=== PATIENT | female | born 1935 | race Caucasian/White ===

== ENCOUNTER 2017-07-20 16:47 | Observation (INO) | payer MEDICARE, OTHER ==
[2017-07-20] MEDS ORDERED: Sodium Chloride 0.9% 10 ML Syringe FLUSH PRN ×2 (16:49→19:41)
[2017-07-20] MEDS ORDERED: Nitroglycerin 0.4 MG Tab.SL SL ONE ×2 (16:51→17:18)
[2017-07-20] MEDS ORDERED: Aspirin 81 MG Tab.Chew PO ONE (16:51)
--- NOTE | 2017-07-20 18:02 | EDM.PDOC ---
ED HPI GENERAL MEDICAL PROBLEM - General Chief Complaint: Chest Pain Stated Complaint: CHEST PAIN, SOB Time Seen by Provider: 07/20/17 16:50 Source of Information: Reports: Patient, Family History Limitations: Reports: No Limitations - History of Present Illness INITIAL COMMENTS - FREE TEXT/NARRATIVE: Leatha presents today with complaints of chest pressure since waking. She reports the pain as intermittent and heavy. She denies fever, chills, nausea, vomiting, radiation of pain to other places of her body. She has not taken aspirin or medication to help her symptoms. - Related Data Allergies Allergy/AdvReac Type Severity Reaction Status Date / Time levofloxacin Allergy Hives Verified 07/20/17 16:51 Home Meds: Home Meds Acetaminophen [Tylenol] 650 mg PO Q4HR PRN 11/11/12 [History] Albuterol Sulfate [Proair Hfa] 2 puff INH Q4H PRN 11/11/12 [History] Aspirin [Halfprin] 81 mg PO BEDTIME 11/11/12 [History] Calcium Carbonate [Calcium] 600 mg PO DAILY 11/11/12 [History] Fluticasone Propionate [Flonase] 2 spray SANYA BID 07/13/14 [History] Clopidogrel Bisulfate [Clopidogrel] 75 mg PO DAILY 07/20/17 [History] Fexofenadine/Pseudoephedrine [Jeimy-D 24 Hour Tablet] 1 tab PO DAILY 07/20/17 [History] Isosorbide Mononitrate [Isosorbide Mononitrate ER] 30 mg PO DAILY 07/20/17 [ History] RX: Gabapentin [Neurontin] 400 mg PO DAILY 07/20/17 [History] RX: Metoprolol Succinate [Toprol XL 50mg] 50 mg PO DAILY 07/20/17 [History] RX: atorvaSTATin [Lipitor] 40 mg PO BEDTIME 07/20/17 [History] Past Medical History HEENT History: Reports: Impaired Vision Cardiovascular History: Reports: Stents Respiratory History: Reports: COPD, SOB, TB 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 - Infectious Disease History Infectious Disease History: Reports: TB - Past Surgical History Other HEENT Surgeries/Procedures: 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 Denies: Wheezing, Sputum, Hemoptysis Cardiovascular: Reports: Chest Pain. 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 ED EXAM, GENERAL - Physical Exam Exam: See Below Free Text/Narrative:: Leatah is an 81 year old female presenting with complaints of chest pressure since this morning. Recent history of TB Negative sputum 05/05/17, 05/06/17, 05/07/17, She developed pancreatitis while taking isoniazid, rifampin, ethambtol and pyridoxine. Cardiac stents place 04/28/17. Per record review: genotype of TB contracted - most likely from contaminated bronchoscopy had same genotype of patient who had procedure prior to Leatha in March,. AFB smear negative 05/06/17 AFB culture showed no mycobacteria isolated 06/23/17. Exam Limited By: No Limitations General Appearance: Alert, WD/WN, Moderate Distress Eye Exam: Bilateral Eye: EOMI, Normal Inspection, PERRL Ears: Normal External Exam, Normal Canal, Hearing Grossly Normal, Normal TMs Ear Exam: Bilateral Ear: TM normal Throat/Mouth: Normal Inspection, Normal Lips, Normal Gums, Normal Oropharynx, Normal Voice, No Airway Compromise Head: Atraumatic, Normocephalic Neck: Normal Inspection, Supple, Non-Tender, Full Range of Motion. No: Lymphadenopathy (R), Lymphadenopathy (L) Respiratory/Chest: No Respiratory Distress, No Accessory Muscle Use, Chest Non- Tender, Other (Decreased breath sounds bilaterally. ) Cardiovascular: Normal Peripheral Pulses, Regular Rate, Rhythm, No Edema, No Murmur, No Rub Peripheral Pulses: 2+: Radial (L), Radial (R), Dorsalis Pedis (L), Dorsalis Pedis (R) GI/Abdominal: Normal Bowel Sounds, Soft, Non-Tender, No Organomegaly, No Distention, No Mass Back Exam: Normal Inspection, Full Range of Motion. No: CVA Tenderness (R), CVA Tenderness (L) Extremities: Normal Inspection, Normal Range of Motion, Non-Tender, No Pedal Edema, Normal Capillary Refill Neurological: Alert, Oriented, CN II-XII Intact, Normal Cognition, Normal Gait, No Motor/Sensory Deficits Psychiatric: Normal Affect, Normal Mood Skin Exam: Warm, Dry, Intact, Normal Color, No Rash Lymphatic: No Adenopathy EKG INTERPRETATION EKG Date: 07/20/17 Time: 16:51 Rhythm: NSR Rate (Beats/Min): 81 [place]: LAD-Left Hazen Deviation P-Wave: Present QRS: Normal ST-T: Normal QT: Normal Course - Vital Signs Last Recorded V/S: Last Vital Signs Temp 36.1 C 07/20/17 19:47 Pulse 73 07/20/17 19:47 Resp 8 L 07/20/17 19:47 BP 142/62 H 07/20/17 19:47 Pulse Ox 96 07/20/17 19:47 - Orders/Labs/Meds Orders: Active Orders 24 hr Category Date Time Status Chest 1V Frontal [CR] Stat Exams 07/20/17 16:49 Stop Req EKG 12 Lead [EK] Routine Ther 07/20/17 16:49 Stop Req Medication Orders Acetaminophen (Tylenol) 650 mg PO Q4H PRN PRN Reason: Pain (Mild 1-3)/fever Albuterol (Ventolin Hfa) 0 gm INH Q4H PRN PRN Reason: Dyspnea Albuterol (Proventil Neb Soln) 2.5 mg NEB Q4H PRN PRN Reason: Shortness Of Breath/wheezing Aspirin (Halfprin) 81 mg PO BEDTIME [facility] Aspirin (Aspirin) 81 mg PO DAILY [facility] Atorvastatin Calcium (Lipitor) 40 mg PO BEDTIME [facility] Clopidogrel Bisulfate (Plavix) 75 mg PO DAILY [facility] Enoxaparin Sodium (Lovenox) 40 mg SUBCUT DAILY [facility] Fluticasone Propionate (Flonase) 0 gm SANYA BID [facility] Gabapentin (Neurontin) 400 mg PO DAILY ECTOR Isosorbide Mononitrate (Imdur) 30 mg PO DAILY [facility] Magnesium Hydroxide (Milk Of Magnesia) 30 ml PO Q12H PRN PRN Reason: Constipation Morphine Sulfate (Morphine) 2 mg IVPUSH Q2H PRN PRN Reason: Pain (severe 7-10) Nitroglycerin (Nitrostat) 0.4 mg SL Q5M PRN PRN Reason: Chest Pain Stop: 07/21/17 18:19 Non-Formulary Medication (Fexofenadine/Pseudoephedrine [Jeimy-D 24 Hour Tablet ]) 1 tab PO DAILY [facility] Ondansetron HCl (Zofran) 4 mg IV Q4H PRN PRN Reason: Nausea/Vomiting Oxycodone HCl (Oxycodone) 5 mg PO Q4H PRN PRN Reason: Pain (moderate 4-6) Polyethylene Glycol (Miralax) 17 gm PO DAILY PRN PRN Reason: Constipation Senna/Docusate Sodium (Senna Plus) 1 tab PO BID PRN PRN Reason: Constipation Sodium Chloride (Saline Flush) 10 ml FLUSH ASDIRECTED PRN PRN Reason: Keep Vein Open Labs: Laboratory Tests 07/20/17 07/20/17 Range/Units 17:08 17:08 WBC 6.4 (4.5-11.0) K/uL RBC 4.32 (3.30-5.50) M/uL Hgb 12.8 (12.0-15.0) g/dL Hct 39.5 (36.0-48.0) % MCV 91 (80-98) fL MCH 30 (27-31) pg MCHC 32 (32-36) % Plt Count 223 (150-400) K/uL Neut % (Auto) 49 (36-66) % Lymph % (Auto) 45 H (24-44) % [place] % (Auto) 5 (2-6) % Eos % (Auto) 1 L (2-4) % Baso % (Auto) 0 (0-1) % Sodium 142 (140-148) mmol/L Potassium 3.3 L (3.6-5.2) mmol/L Chloride 105 (100-108) mmol/L Carbon Dioxide 25 (21-32) mmol/L Anion Gap 15.3 H (5.0-14.0) mmol/L BUN 16 (7-18) mg/dL Creatinine 1.1 H (0.6-1.0) mg/dL Est Cr Clr Drug Dosing 38.19 mL/min Estimated GFR (MDRD) 48 L (>60) Glucose 131 H (74-106) mg/dL Calcium 8.8 (8.5-10.1) mg/dL Total Bilirubin 0.5 (0.2-1.0) mg/dL AST 18 (15-37) U/L ALT 26 (12-78) U/L Alkaline Phosphatase 91 (46-116) U/L Troponin I < 0.017 (0.000-0.056) ng/mL Total Protein 7.0 (6.4-8.2) g/dL Albumin 3.2 L (3.4-5.0) g/dL Globulin 3.8 H (2.3-3.5) g/dL Albumin/Globulin Ratio 0.8 L (1.2-2.2) Patient lab work reviewed with her and her , Dr. Nicolas notified. Patient will be admitted observation. Patient and her in agreement. Meds: Medications Generic Name Dose Route Start Last Admin Trade Name Freq PRN Reason Stop Dose Admin Acetaminophen 650 mg 07/20/17 19:41 Tylenol PO Q4H PRN Pain (Mild 1-3)/fever Albuterol 0 gm 07/20/17 19:41 Ventolin Hfa INH Q4H PRN Dyspnea Albuterol 2.5 mg 07/20/17 19:41 Proventil Neb Soln NEB Q4H PRN Shortness Of Breath/wheezing Aspirin 81 mg 07/20/17 21:00 Halfprin PO BEDTIME ECTOR Aspirin 81 mg 07/21/17 09:00 Aspirin PO DAILY [facility] Atorvastatin Calcium 40 mg 07/20/17 21:00 Lipitor PO BEDTIME ECTOR Clopidogrel Bisulfate 75 mg 07/21/17 09:00 Plavix PO DAILY [facility] Enoxaparin Sodium 40 mg 07/20/17 19:41 Lovenox SUBCUT DAILY [facility] Fluticasone Propionate 0 gm 07/20/17 21:00 Flonase SANYA BID [facility] Gabapentin 400 mg 07/21/17 09:00 Neurontin PO DAILY [facility] Isosorbide Mononitrate 30 mg 07/21/17 09:00 Imdur PO DAILY [facility] Magnesium Hydroxide 30 ml 07/20/17 19:41 Milk Of Magnesia PO Q12H PRN Constipation Morphine Sulfate 2 mg 07/20/17 19:41 Morphine IVPUSH Q2H PRN Pain (severe 7-10) Nitroglycerin 0.4 mg 07/20/17 19:41 Nitrostat SL 07/21/17 18:19 Q5M PRN Chest Pain Non-Formulary Medication 1 tab 07/21/17 09:00 Fexofenadine/Pseudoephedrine [Jeimy-D 24 Hour Tablet] PO DAILY [facility] Ondansetron HCl 4 mg 07/20/17 19:41 Zofran IV Q4H PRN Nausea/Vomiting Oxycodone HCl 5 mg 07/20/17 19:41 Oxycodone PO Q4H PRN Pain (moderate 4-6) Polyethylene Glycol 17 gm 07/20/17 19:41 Miralax PO DAILY PRN Constipation Senna/Docusate Sodium 1 tab 07/20/17 19:41 Senna Plus PO BID PRN Constipation Sodium Chloride 10 ml 07/20/17 19:41 Saline Flush FLUSH ASDIRECTED PRN Keep Vein Open Discontinued Medications Generic Name Dose Route Start Last Admin Trade Name Freq PRN Reason Stop Dose Admin Aspirin 324 mg 07/20/17 16:51 07/20/17 16:56 Aspirin PO 07/20/17 16:52 324 mg ONETIME ONE Administration Nitroglycerin 0.4 mg 07/20/17 16:51 07/20/17 16:56 Nitrostat SL 07/20/17 16:52 0.4 mg ONETIME ONE Administration Nitroglycerin 0.4 mg 07/20/17 17:18 07/20/17 17:22 Nitrostat SL 07/20/17 17:19 0.4 mg ONETIME ONE Administration Potassium Chloride 40 meq 07/20/17 19:41 Klor-Con M20 PO 07/20/17 19:42 ONETIME ONE Sodium Chloride 10 ml 07/20/17 16:49 07/20/17 17:06 Saline Flush FLUSH 10 ml ASDIRECTED PRN Administration Keep Vein Open - Radiology Interpretation Free Text/Narrative:: Chest x-ray reviewed and wet read. Slight enlargement of cardiac profile. Radiologist read pending. - Re-Assessments/Exams Free Text/Narrative Re-Assessment/Exam: 07/20/17 17:57 Patient assessment, lab work and history discussed with Dr. Nicolas. Heart score 5 Patient will be admitted. Departure - Departure Time of Disposition: 18:10 Disposition: Admitted As Inpatient 67 Condition: Fair Clinical Impression: Chest pressure - My Orders Last 24 Hours: My Active Orders 07/20/17 16:49 Chest 1V Frontal [CR] Stat EKG 12 Lead [EK] Routine - Assessment/Plan Last 24 Hours: My Active Orders 07/20/17 16:49 Chest 1V Frontal [CR] Stat EKG 12 Lead [EK] Routine Assessment:: Chest pressure Heart score 5 Plan: Patient will be admitted per Dr. Nicolas for chest pressure.
--- NOTE | 2017-07-20 18:27 | PCM.HP ---
H&P History of Present Illness - General Date of Service: 07/20/17 Admit Problem/Dx: Admission Diagnosis/Problem Admission Diagnosis/Problem Chest pain Source of Information: Patient, Family, Provider, RN Notes Reviewed History Limitations: Reports: No Limitations - History of Present Illness Initial Comments - Free Text/Narative: Ms. Littlejohn is an 81-year-old woman who is admitted through the emergency department to observation status for further evaluation of chest pressure. She has a known history of coronary artery disease, status post angioplasty and stents of 2 lesions in April of this year. Medical history is also somewhat complicated over the past several months with a diagnosis of tuberculosis, she was intolerant of medical treatment having developed pancreatitis from the antituberculous medications. She is currently on no active treatment but awaiting appointment with infectious disease to discuss further options for management. 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 She also has a known history of COPD. EKG in the emergency department shows no acute ST segment changes in the initial troponin level is normal. Chest pain resolved with 2 sublingual nitroglycerin in the emergency department. Risk factors for coronary artery disease include a positive family history, a personal history of hypertension and hypercholesterolemia. Calculated HEART score is 5. - Related Data Allergies/Adverse Reactions: Allergies Allergy/AdvReac Type Severity Reaction Status Date / Time levofloxacin Allergy Hives Verified 07/20/17 16:51 Home Medications: Home Meds Acetaminophen [Tylenol] 650 mg PO Q4HR PRN 11/11/12 [History] Albuterol Sulfate [Proair Hfa] 2 puff INH Q4H PRN 11/11/12 [History] Aspirin [Halfprin] 81 mg PO BEDTIME 11/11/12 [History] Calcium Carbonate [Calcium] 600 mg PO DAILY 11/11/12 [History] Fluticasone Propionate [Flonase] 2 spray SANYA BID 07/13/14 [History] Clopidogrel Bisulfate [Clopidogrel] 75 mg PO DAILY 07/20/17 [History] Fexofenadine/Pseudoephedrine [Jeimy-D 24 Hour Tablet] 1 tab PO DAILY 07/20/17 [History] Gabapentin [Neurontin] 400 mg PO DAILY 07/20/17 [History] Isosorbide Mononitrate [Isosorbide Mononitrate ER] 30 mg PO DAILY 07/20/17 [ History] Metoprolol Succinate [Toprol XL 50mg] 50 mg PO DAILY 07/20/17 [History] atorvaSTATin [Lipitor] 40 mg PO BEDTIME 07/20/17 [History] Past Medical History HEENT History: Reports: Impaired Vision Cardiovascular History: Reports: Stents Respiratory History: Reports: COPD, SOB, TB 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 Denies: Fever, Chills HEENT: Reports: No Symptoms Pulmonary: Reports: Shortness of Breath, Cough. Denies: Wheezing, Pleuritic Chest Pain, Sputum, Hemoptysis Cardiovascular: Reports: Chest Pain, Dyspnea on Exertion. Denies: Palpitations , Orthopnea, PND, Edema, Lightheadedness Gastrointestinal: Reports: No Symptoms Genitourinary: Reports: No Symptoms Musculoskeletal: Reports: No Symptoms Skin: Reports: No Symptoms Psychiatric: Reports: No Symptoms Neurological: Reports: No Symptoms Hematologic/Lymphatic: Reports: No Symptoms Immunologic: Reports: No Symptoms Exam - Exam Exam: See Below - Vital Signs Vital Signs: Last Vital Signs Temp 98.6 F 07/20/17 16:50 Pulse 81 07/20/17 17:34 Resp 13 07/20/17 16:50 BP 142/72 H 07/20/17 17:34 Pulse Ox 97 07/20/17 16:50 Weight: 163 lb - Exam Quality Assessment: DVT Prophylaxis. No: Supplemental Oxygen General: Alert, Oriented, Cooperative, Mild Distress HEENT: Conjunctiva Clear, Hearing Intact, Mucosa Moist & [place], Normal Nasal Septum, Posterior Pharynx Clear, Pupils Equal Neck: Supple, Trachea Midline, +2 Carotid Pulse wo Bruit Lungs: Clear to Auscultation, Normal Respiratory Effort, Decreased Breath Sounds Cardiovascular: Regular Rate, Regular Rhythm, Normal S1, Normal S2. No: Systolic Murmur, Diastolic Murmur GI/Abdominal Exam: Soft, Non-Tender, No Organomegaly, No Distention Back Exam: Normal Inspection, Full Range of Motion, Vertebral Tenderness Extremities: Non-Tender, No Pedal Edema Skin: Warm, Dry, Intact Neurological: Cranial Nerves Intact, Strength Equal Bilateral, Normal Speech, Normal Tone, Sensation Intact. No: Focal Deficit Neuro Extensive - Mental Status: Alert, Oriented x3, Normal Mood/Affect, Normal Cognition, Memory Intact - Patient Data Lab Results Last 24 hrs: Laboratory Results - last 24 hr 07/20/17 07/20/17 Range/Units 17:08 17:08 WBC 6.4 (4.5-11.0) K/uL RBC 4.32 (3.30-5.50) M/uL Hgb 12.8 (12.0-15.0) g/dL Hct 39.5 (36.0-48.0) % MCV 91 (80-98) fL MCH 30 (27-31) pg MCHC 32 (32-36) % Plt Count 223 (150-400) K/uL Neut % (Auto) 49 (36-66) % Lymph % (Auto) 45 H (24-44) % [place] % (Auto) 5 (2-6) % Eos % (Auto) 1 L (2-4) % Baso % (Auto) 0 (0-1) % Sodium 142 (140-148) mmol/L Potassium 3.3 L (3.6-5.2) mmol/L Chloride 105 (100-108) mmol/L Carbon Dioxide 25 (21-32) mmol/L Anion Gap 15.3 H (5.0-14.0) mmol/L BUN 16 (7-18) mg/dL Creatinine 1.1 H (0.6-1.0) mg/dL Est Cr Clr Drug Dosing 38.19 mL/min Estimated GFR (MDRD) 48 L (>60) Glucose 131 H (74-106) mg/dL Calcium 8.8 (8.5-10.1) mg/dL Total Bilirubin 0.5 (0.2-1.0) mg/dL AST 18 (15-37) U/L ALT 26 (12-78) U/L Alkaline Phosphatase 91 (46-116) U/L Troponin I < 0.017 (0.000-0.056) ng/mL Total Protein 7.0 (6.4-8.2) g/dL Albumin 3.2 L (3.4-5.0) g/dL Globulin 3.8 H (2.3-3.5) g/dL Albumin/Globulin Ratio 0.8 L (1.2-2.2) Result Diagrams: 07/20/17 17:08 07/20/17 17:08 *Q Meaningful Use (ADM) - VTE Risk Assess *Q Each Risk Factor Represents 1 Point: Abnormal Pulmonary Function (COPD) Total Score 1 Point Risk Factors: 1 Each Risk Factor Represents 2 Points: None Total Score 2 Point Risk Factors: 0 Each Risk Factor Represents 3 Points: Age 75 Years or Greater Total Score 3 Point Risk Factors: 3 Each Risk Factor Represents 5 Points: None Total Score 5 Point Risk Factors: 0 Venous Thromboembolism Risk Factor Score *Q: 4 Problem List Initiated/Reviewed/Updated: Yes Orders Last 24hrs: Active Orders 24 hr Category Date Time Status Patient Status Manage Transfer [TRANSFER] Routine ADT 07/20/17 18:11 Active EKG Documentation Completion [RC] ASDIRECTED Care 07/20/17 16:49 Active Chest 1V Frontal [CR] Stat Exams 07/20/17 16:49 Ordered Sodium Chloride 0.9% [Saline Flush] Med 07/20/17 16:49 Active 10 ml FLUSH ASDIRECTED PRN Saline Lock Insert [OM.PC] Routine Oth 07/20/17 16:49 Ordered Resuscitation Status Routine Resus Stat 07/20/17 18:15 Ordered EKG 12 Lead [EK] Routine Ther 07/20/17 16:49 Ordered Medication Orders Sodium Chloride (Saline Flush) 10 ml FLUSH ASDIRECTED PRN PRN Reason: Keep Vein Open Last Admin: 07/20/17 17:06 Dose: 10 ml Assessment/Plan Comment:: ASSESSMENT AND PLAN CHEST PAIN-known history of coronary artery disease, status post angioplasty with 2 stents placed in April of this year. Current symptoms of chest pressure, shortness of breath, decreased exercise tolerance, and weakness are similar to what she experienced prior to angioplasty and stents. Initial EKG and troponin are unremarkable, calculated heart score is 5. -Observation admission -Serial troponin levels -Exercise Cardiolite study in a.m. TUBERCULOSIS-found to have active disease this winter while in [place]. Failed initial course of antibacterial therapy because of an episode of pancreatitis. -Outpatient appointment with ID is pending COPD -Inhaler and nebulizer therapy as needed MAINTENANCE ISSUES -DVT prophylaxis; Lovenox 40 mg subcutaneous daily -GI prophylaxis; not indicated -Hart catheter; not indicated -Nutrition; 2 g sodium diet -Nicotine dependence; not required CODE STATUS-FULL CODE ADMISSION STATUS-this patient will be admitted to observation status, expect no more than a one night hospital stay for evaluation and management of problems as outlined above. DISPOSITION-anticipate discharge to home after the hospital stay. PRIMARY CARE PROVIDER-Dr. Holbrook
[2017-07-20] MEDS ORDERED: Albuterol 0.083% 2.5 MG/3 ML Neb Soln NEB PRN (19:41)
[2017-07-20] MEDS ORDERED: Ondansetron 4 MG/2 ML SDV IV PRN (19:41)
[2017-07-20] MEDS ORDERED: Enoxaparin 40 MG/0.4 ML Syringe SUBCUT SCH (19:41)
[2017-07-20] MEDS ORDERED: Magnesium Hydroxide 400 MG/5 ML Susp 30 ML Cup PO PRN (19:41)
[2017-07-20] MEDS ORDERED: Morphine 2 MG/ML Syringe IVPUSH PRN (19:41)
[2017-07-20] MEDS ORDERED: oxyCODONE 5 MG Tab PO PRN (19:41)
[2017-07-20] MEDS ORDERED: Polyethylene Glycol 3350 Powder 17 GM Packet PO PRN (19:41)
[2017-07-20] MEDS ORDERED: Acetaminophen 325 MG Tab PO PRN (19:41)
[2017-07-20] MEDS ORDERED: Albuterol 8 GM Inhaler INH PRN (19:41)
[2017-07-20] MEDS ORDERED: Potassium Chloride 20 MEQ Tab.ER PO ONE (19:41)
[2017-07-20] MEDS: Fluticasone Propionate Nasal Spray 16 GM Bottle NAS SCH (20:48)
[2017-07-20] MEDS ORDERED: atorvaSTATin 20 MG Tab PO SCH (21:00)
[2017-07-21] MEDS: Nitroglycerin 0.4 MG Tab.SL SL PRN ×2 (00:39→00:45)
[2017-07-21] MEDS ORDERED: Non-Formulary Medication 1 Each (Fexofenadine/Pseudoephedrine [Allegra-D 24 Hour Tablet] 1 PO SCH (09:00)
[2017-07-21] MEDS ORDERED: Aspirin 81 MG Tab.Chew PO SCH (09:00)
[2017-07-21] MEDS ORDERED: Isosorbide Mononitrate 30 MG Tab.ER PO SCH (09:00)
[2017-07-21] MEDS ORDERED: Clopidogrel 75 MG Tab PO SCH (09:00)
[2017-07-21] MEDS ORDERED: Gabapentin 400 MG Cap PO SCH (09:00)
[2017-07-21] MEDS ORDERED: Rifampin 150 MG Cap PO ONE (10:30)
[2017-07-21 10:32] VITALS: BP 159/69
[2017-07-21] MEDS: Fluticasone Propionate Nasal Spray 16 GM Bottle NAS SCH (10:35)
--- NOTE | 2017-07-21 11:57 | PCM.DCSUM1 ---
Discharge Summary - Hospital Course Brief History: 81-year-old female with history of coronary artery disease and previous angioplasty as well as tuberculosis infection who presented with chest pressure and dyspnea. She was admitted for chest pain rule out. - Discharge Data Discharge Date: 07/21/17 Discharge Disposition: Home, Self-Care 01 Condition: Good - Patient Summary/Data Hospital Course: Leatha presented to the emergency room yesterday with progressive shortness of breath, chest pressure and cough. She also reported some night sweats. Workup in the emergency room was unremarkable but given the somewhat recent history of stenting she was admitted for chest pain rule out. Overnight there were no abnormalities noted on telemetry. Serial troponin levels were undetectable. By the morning after admission the patient was feeling better. I was contacted by the [facility] the morning after admission. There was concern about possible active tuberculosis. The [facility] had been trying to set up outpatient follow-up but had been having some difficulties obtaining follow-up appointment. [facility] nursing had recently obtained 3 sputum samples obtained and consecutive days and would be sending them to the Department of [facility]. I also spoke with the [facility] physician Dr. Platt about the best course of action. The patient preferred to receive outpatient management and was comfortable initiating the antituberculosis drugs at home despite her previous difficulties with acute pancreatitis. Dr. Platt thought that the pancreatitis was most likely related to the isoniazid. She recommended initiating medications in a stepwise fashion with rifampin being the first medication initiated followed by pyrazinamide and then ethambutol. The patient did receive one dose of rifampin prior to hospital discharge and received a ten-day prescription for the medication. I did complete paperwork for the [facility] for her to receive anti-tuberculosis treatment and this was faxed back. I also talked to Dr. Sullivan with infectious disease at [facility] in [place], [place]. We discussed current symptoms including the cough, shortness of breath, chest pressure as well as night sweats and felt that this represented potentially an active infection. He recommended a home quarantine until the sputum samples can be evaluated in the Department Health lab. He was agreeable to the previously mentioned drug regimen as well as the initiation schedule. He will be available for follow-up and an appointment has been scheduled in 10 days time. We will schedule early outpatient follow-up to ensure that she's tolerating the rifampin. She will be discharged home this afternoon with her .we did complete a noncontrast chest CT for comparison to the [facility] to assess for stability versus progression versus improvement. A stress test had been considered for evaluation of her atypical chest pain but it has been placed on hold at this time. Her pain does not sound cardiac and with probable active infection I think he would be best to treat that first unless she has additional difficulties with chest pain concerning for a cardiac source. - Patient Instructions Diet: Regular Diet as Tolerated Activity: As Tolerated Showering/Bathing: May Shower Notify Provider of: Fever, Increased Pain, Nausea and/or Vomiting Other/Special Instructions: 1. You were in the hospital for observation after an episode of chest pressure associated with shortness of breath. I suspect the chest pressure and shortness of breath are related to your tuberculosis infection. After discussion with the [place] [facility] as well as the infectious disease specialist in [place], the recommendation is to initiate therapy for tuberculosis. The first drug started will be rifampin 600 mg taken once daily. I would recommend follow-up in 3-[address] Holbrook so the second medication (pyrazinamide 1500 mg daily) can be initiated. You will have follow-up with Dr. Sullivan on August 01 at the infectious disease clinic in [place]. Until we have final results of the sputum smears and cultures that have been sent to the [facility] I would recommend that you stay at home and isolated to avoid potential spread of the infection until we are sure that you are not contagious. 2. Please continue your other medications as previously prescribed. 3. You can contact Miriam with the [facility] if you have additional questions or need additional assistance. The [facility] will be contacting you later in the week. 4. Please seek medical attention if you develop high fever, severe shortness of breath or severe chest pain/pressure. - Discharge Plan Prescriptions/Med Rec: Rifampin 600 mg PO DAILY #20 capsule Home Medications: Home Meds Acetaminophen [Tylenol] 650 mg PO Q4HR PRN 11/11/12 [History] Albuterol Sulfate [Proair Hfa] 2 puff INH Q4H PRN 11/11/12 [History] Aspirin [Halfprin] 81 mg PO BEDTIME 11/11/12 [History] Calcium Carbonate [Calcium] 600 mg PO DAILY 11/11/12 [History] Fluticasone Propionate [Flonase] 2 spray SANYA BID 07/13/14 [History] Clopidogrel Bisulfate [Clopidogrel] 75 mg PO DAILY 07/20/17 [History] Fexofenadine/Pseudoephedrine [Jeimy-D 24 Hour Tablet] 1 tab PO DAILY 07/20/17 [History] Gabapentin [Neurontin] 400 mg PO DAILY 07/20/17 [History] Isosorbide Mononitrate [Isosorbide Mononitrate ER] 30 mg PO DAILY 07/20/17 [ History] Metoprolol Succinate [Toprol XL 50mg] 50 mg PO DAILY 07/20/17 [History] atorvaSTATin [Lipitor] 40 mg PO BEDTIME 07/20/17 [History] Rifampin 600 mg PO DAILY #20 capsule 07/21/17 [Rx] Patient Handouts: Rifampin capsules, Nonspecific Chest Pain Referrals: Hermann Holbrook MD [Physician] - (07/24 or 07/25 - f/u hospital stay for chest pressure, initiate pyrazinamide for TB management ) Kashif Sullivan [Ordering Only Provider] - (August 01 - [facility] [phone]) - Discharge Summary/Plan Comment DC Time >30 min.: Yes (80 - coordinating care and f/u with [facility] and ID specialists) - Patient Data Vitals - Most Recent: Last Vital Signs Temp 35.8 C 07/21/17 07:46 Pulse 62 07/21/17 10:00 Resp 21 H 07/21/17 10:00 BP 159/69 H 07/21/17 10:00 Pulse Ox 100 07/21/17 10:00 Weight - Most Recent: 73.301 kg I&O - Last 24 hours: Intake & Output 07/20/17 07/21/17 07/21/17 22:59 06:59 14:59 Intake Total 480 Balance 480 Lab Results - Last 24 hrs: Laboratory Results - last 24 hr 07/20/17 07/20/17 07/20/17 Range/Units 17:08 17:08 23:01 WBC 6.4 (4.5-11.0) K/uL RBC 4.32 (3.30-5.50) M/uL Hgb 12.8 (12.0-15.0) g/dL Hct 39.5 (36.0-48.0) % MCV 91 (80-98) fL MCH 30 (27-31) pg MCHC 32 (32-36) % Plt Count 223 (150-400) K/uL Neut % (Auto) 49 (36-66) % Lymph % (Auto) 45 H (24-44) % Douglas % (Auto) 5 (2-6) % Eos % (Auto) 1 L (2-4) % Baso % (Auto) 0 (0-1) % Sodium 142 (140-148) mmol/L Potassium 3.3 L (3.6-5.2) mmol/L Chloride 105 (100-108) mmol/L Carbon Dioxide 25 (21-32) mmol/L Anion Gap 15.3 H (5.0-14.0) mmol/L BUN 16 (7-18) mg/dL Creatinine 1.1 H (0.6-1.0) mg/dL Est Cr Clr Drug Dosing 38.19 mL/min Estimated GFR (MDRD) 48 L (>60) Glucose 131 H (74-106) mg/dL Calcium 8.8 (8.5-10.1) mg/dL Total Bilirubin 0.5 (0.2-1.0) mg/dL AST 18 (15-37) U/L ALT 26 (12-78) U/L Alkaline Phosphatase 91 (46-116) U/L Troponin I < 0.017 < 0.017 (0.000-0.056) ng/mL Total Protein 7.0 (6.4-8.2) g/dL Albumin 3.2 L (3.4-5.0) g/dL Globulin 3.8 H (2.3-3.5) g/dL Albumin/Globulin Ratio 0.8 L (1.2-2.2) / Range/Units 05:30 WBC (4.5-11.0) K/uL RBC (3.30-5.50) M/uL Hgb (12.0-15.0) g/dL Hct (36.0-48.0) % MCV (80-98) fL MCH (27-31) pg MCHC (32-36) % Plt Count (150-400) K/uL Neut % (Auto) (36-66) % Lymph % (Auto) (24-44) % Douglas % (Auto) (2-6) % Eos % (Auto) (2-4) % Baso % (Auto) (0-1) % Sodium 143 (140-148) mmol/L Potassium 4.2 (3.6-5.2) mmol/L Chloride 109 H (100-108) mmol/L Carbon Dioxide 26 (21-32) mmol/L Anion Gap 12.2 (5.0-14.0) mmol/L BUN 13 (7-18) mg/dL Creatinine 1.0 (0.6-1.0) mg/dL Est Cr Clr Drug Dosing 42.00 mL/min Estimated GFR (MDRD) 53 L (>60) Glucose 102 (74-106) mg/dL Calcium 8.8 (8.5-10.1) mg/dL Total Bilirubin (0.2-1.0) mg/dL AST (15-37) U/L ALT (12-78) U/L Alkaline Phosphatase (46-116) U/L Troponin I < 0.017 (0.000-0.056) ng/mL Total Protein (6.4-8.2) g/dL Albumin (3.4-5.0) g/dL Globulin (2.3-3.5) g/dL Albumin/Globulin Ratio (1.2-2.2) Med Orders - Current: Current Medications Acetaminophen (Tylenol) 650 mg PO Q4H PRN PRN Reason: Pain (Mild 1-3)/fever Last Admin: 07/20/17 23:29 Dose: 650 mg Albuterol (Ventolin Hfa) 0 gm INH Q4H PRN PRN Reason: Dyspnea Albuterol (Proventil Neb Soln) 2.5 mg NEB Q4H PRN PRN Reason: Shortness Of Breath/wheezing Aspirin (Halfprin) 81 mg PO BEDTIME [facility] Atorvastatin Calcium (Lipitor) 40 mg PO BEDTIME [facility] Last Admin: 07/20/17 20:48 Dose: Not Given Clopidogrel Bisulfate (Plavix) 75 mg PO DAILY [facility] Enoxaparin Sodium (Lovenox) 40 mg SUBCUT QPM [facility] Fluticasone Propionate (Flonase) 0 gm SANYA BID [facility] Last Admin: 07/21/17 10:35 Dose: Not Given Gabapentin (Neurontin) 400 mg PO DAILY [facility] Isosorbide Mononitrate (Imdur) 30 mg PO DAILY [facility] Magnesium Hydroxide (Milk Of Magnesia) 30 ml PO Q12H PRN PRN Reason: Constipation Morphine Sulfate (Morphine) 2 mg IVPUSH Q2H PRN PRN Reason: Pain (severe 7-10) Nitroglycerin (Nitrostat) 0.4 mg SL Q5M PRN PRN Reason: Chest Pain Stop: 07/21/17 18:19 Last Admin: 07/21/17 00:45 Dose: 0.4 mg Non-Formulary Medication (Fexofenadine/Pseudoephedrine [Jeimy-D 24 Hour Tablet ]) 1 tab PO DAILY [facility] Ondansetron HCl (Zofran) 4 mg IV Q4H PRN PRN Reason: Nausea/Vomiting Oxycodone HCl (Oxycodone) 5 mg PO Q4H PRN PRN Reason: Pain (moderate 4-6) Polyethylene Glycol (Miralax) 17 gm PO DAILY PRN PRN Reason: Constipation Senna/Docusate Sodium (Senna Plus) 1 tab PO BID PRN PRN Reason: Constipation Sodium Chloride (Saline Flush) 10 ml FLUSH ASDIRECTED PRN PRN Reason: Keep Vein Open Discontinued Medications Aspirin (Aspirin) 324 mg PO ONETIME ONE Stop: 07/20/17 16:52 Last Admin: 07/20/17 16:56 Dose: 324 mg Aspirin (Aspirin) 81 mg PO DAILY [facility] Enoxaparin Sodium (Lovenox) 40 mg SUBCUT DAILY [facility] Last Admin: 07/20/17 20:45 Dose: 40 mg Nitroglycerin (Nitrostat) 0.4 mg SL ONETIME ONE Stop: 07/20/17 16:52 Last Admin: 07/20/17 16:56 Dose: 0.4 mg Nitroglycerin (Nitrostat) 0.4 mg SL ONETIME ONE Stop: 07/20/17 17:19 Last Admin: 07/20/17 17:22 Dose: 0.4 mg Potassium Chloride (Klor-Con M20) 40 meq PO ONETIME ONE Stop: 07/20/17 19:42 Last Admin: 07/20/17 20:42 Dose: 40 meq Rifampin (Rifadin) 600 mg PO ONETIME ONE Stop: 07/21/17 10:31 Last Admin: 07/21/17 10:29 Dose: 600 mg Sodium Chloride (Saline Flush) 10 ml FLUSH ASDIRECTED PRN PRN Reason: Keep Vein Open Last Admin: 07/20/17 17:06 Dose: 10 ml - Exam Quality Assessment: Denies: Supplemental Oxygen General: Reports: Alert, Oriented, Cooperative, No Acute Distress Neck: Reports: Supple Lungs: Reports: Normal Respiratory Effort GI/Abdominal Exam: No Distention Extremities: No Pedal Edema Psy/Mental Status: Reports: Alert, Normal Affect
--- NOTE | 2017-07-21 14:09 | CT ---
Chest wo Cont INDICATION: active TB COMPARISON: Chest x-ray 06/20/2017. FINDINGS: Of nodular opacities in the left upper lobe, the largest measuring 16 mm in greatest transv erse dimension. Cluster of small pulmonary nodules in the inferior right middle lobe and right lower lobe, the largest measuring 8 mm. Minimal nodular interstitial infiltrate in the lingula laterally. T iny pulmonary nodules in the left lower lobe. By report, the patient has been diagnosed with active t uberculosis. Borderline enlarged prevascular and mediastinal lymph nodes, the largest measuring 9 mm in short axis. Left hepatic lobe cyst. Surgical clips in the upper abdomen. Small splenule. Old right rib fracture. Exam otherwise unremarkable. IMPRESSION: Pulmonary nodules consistent with clinical history of active tuberculosis. Borderline enl arged mediastinal lymph nodes.
[2017-07-21] MEDS ORDERED: Enoxaparin 40 MG/0.4 ML Syringe SUBCUT SCH (17:00)
[2017-07-21] MEDS ORDERED: Aspirin 81 MG Tab.EC PO SCH (21:00)
--- NOTE | 2017-07-22 14:10 | CR ---
Chest 1V Frontal INDICATION: CHEST PAIN FINDINGS: 2.1 cm pulmonary nodule left upper lobe is indeterminant. Heart size at the upper limits of normal. Slight prominence of the interstitium. Please see scheduled CT of the chest 07/21/2017.
== END 2017-07-21 15:30 | disposition home or self-care (01) ==
LOC: JP.ED 16:47 → JP.ICU 18:11
PROVIDERS: ADMIT Hospitalist; ATTEND Internal Medicine
DX: R07.89 Other chest pain (principal); A15.7 Primary respiratory tuberculosis; I25.10 Atherosclerotic heart disease of native coronary artery without angina pectoris; J44.9 Chronic obstructive pulmonary disease, unspecified; K85.30 Drug induced acute pancreatitis without necrosis or infection; Z79.82 Long term (current) use of aspirin; Z79.51 Long term (current) use of inhaled steroids; Z79.899 Other long term (current) drug therapy; Z98.61 Coronary angioplasty status
CPT/HCPCS: 36415; 71045; 71250; 80048; 80053; 84484; 85025; 93005; 99285; A9270; J1650; J7050; 96372; G0378

== ENCOUNTER 2017-08-19 23:58 | Inpatient (IN) | payer MEDICARE ==
[2017-08-20] MEDS ORDERED: Bisacodyl 10 MG Supp RECTAL ONE (00:37)
--- NOTE | 2017-08-20 00:40 | EDM.PDOC ---
ED HPI GENERAL MEDICAL PROBLEM - General Chief Complaint: Abdominal Pain Stated Complaint: NOT FEELING WELL Time Seen by Provider: 08/20/17 00:35 Source of Information: Reports: Patient, Old Records, RN History Limitations: Reports: No Limitations - History of Present Illness INITIAL COMMENTS - FREE TEXT/NARRATIVE: 82 yo female was seen in the clinic today for constipation. They prescribed mag citrate and Miralax. She was unable to keep the Mag citrate down and still has not had a BM so comes now to the ER. Last BM was last Friday. Has some cramping. Constipation from a road trip over the weekend to the [facility]. Also, tried a Fleets enema at home without results. Has had a cholecystectomy and appendectomy. 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) (See HPI) - Related Data Allergies Allergy/AdvReac Type Severity Reaction Status Date / Time levofloxacin Allergy Hives Verified 08/20/17 00:32 Home Meds: Home Meds Acetaminophen [Tylenol] 650 mg PO Q4HR PRN 11/11/12 [History] Albuterol Sulfate [Proair Hfa] 2 puff INH Q4H PRN 11/11/12 [History] Aspirin [Halfprin] 81 mg PO BEDTIME 11/11/12 [History] Calcium Carbonate [Calcium] 600 mg PO DAILY 11/11/12 [History] Fluticasone Propionate [Flonase] 2 spray SANYA BID 07/13/14 [History] Clopidogrel Bisulfate [Clopidogrel] 75 mg PO DAILY 07/20/17 [History] Fexofenadine/Pseudoephedrine [Jeimy-D 24 Hour Tablet] 1 tab PO DAILY 07/20/17 [History] Gabapentin [Neurontin] 400 mg PO DAILY 07/20/17 [History] Isosorbide Mononitrate [Isosorbide Mononitrate ER] 30 mg PO DAILY 07/20/17 [ History] Metoprolol Succinate [Toprol XL 50mg] 50 mg PO DAILY 07/20/17 [History] atorvaSTATin [Lipitor] 40 mg PO BEDTIME 07/20/17 [History] Rifampin 600 mg PO DAILY #20 capsule 07/21/17 [Rx] Past Medical History HEENT History: Reports: Impaired Vision Cardiovascular History: Reports: Stents Respiratory History: Reports: COPD, SOB, TB 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 Gastrointestinal History: Reports: Diverticulosis, Pancreatitis 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: Musculoskeletal History: Reports: Osteoarthritis, Other (See Below) Other Musculoskeletal History: osteopenia Oncologic (Cancer) History: Reports: Squamous Cell Carcinoma Dermatologic History: Reports: Other (See Below) Other Dermatologic History: squamous ca thumb - Infectious Disease History Infectious Disease History: Reports: TB Other Infectious Disease History: valley fever - Past Surgical History Other HEENT Surgeries/Procedures: 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 Denies: Anorexia, Black Stool, Bloody Stool, Diarrhea, Decreased Appetite, Distension, Flatus, Hematemesis, Hematochezia, Melena : Reports: No Symptoms Musculoskeletal: Reports: No Symptoms Skin: Reports: No Symptoms Neurological: Reports: No Symptoms ED EXAM, GI/ABD - Physical Exam Exam: See Below Exam Limited By: No Limitations General Appearance: Alert, WD/WN, No Apparent Distress Eyes: Bilateral: Normal Appearance Ears: Normal External Exam, Normal Canal, Hearing Grossly Normal, Normal TMs Nose: Normal Inspection, Normal Mucosa, No Blood Throat/Mouth: Normal Inspection, Normal Lips, Normal Oropharynx, Normal Voice, No Airway Compromise Head: Atraumatic, Normocephalic Neck: Normal Inspection, Supple Respiratory/Chest: No Respiratory Distress, Lungs Clear, Normal Breath Sounds, No Accessory Muscle Use Cardiovascular: Regular Rate, Rhythm, No Edema GI/Abdominal Exam: Soft, No Distention, Tender (minimal tenderness just below the umbilicus), Abnormal Bowel Sounds (increased) Back Exam: Normal Inspection. No: CVA Tenderness (R), CVA Tenderness (L) Extremities: Normal Inspection, Normal Range of Motion, Non-Tender, No Pedal Edema Neurological: Alert, Oriented, CN II-XII Intact, Normal Cognition, No Motor/ Sensory Deficits Psychiatric: Normal Affect, Normal Mood Skin Exam: Warm, Dry, Intact, Normal Color, No Rash Lymphatic: No Adenopathy Course - Vital Signs Last Recorded V/S: Last Vital Signs Temp 36.0 C 08/20/17 00:33 Pulse 66 08/20/17 00:33 Resp 16 08/20/17 00:33 BP 164/72 H 08/20/17 00:33 Pulse Ox 94 L 08/20/17 00:33 - Orders/Labs/Meds Orders: Active Orders 24 hr Category Date Time Status Enema [RC] ASDIRECTED Care 08/20/17 01:51 Active Abdomen 2V AP Flat Upright [CR] Stat Exams 08/20/17 01:28 Taken Abdomen Pelvis w Cont [CT] Stat Exams 08/20/17 02:50 Taken Meds: Medications Discontinued Medications Generic Name Dose Route Start Last Admin Trade Name Freq PRN Reason Stop Dose Admin Bisacodyl 10 mg 08/20/17 00:37 08/20/17 00:44 Dulcolax RECTAL 08/20/17 00:38 10 mg ONETIME ONE Administration Glycerin 1 supp 08/20/17 00:43 08/20/17 00:46 Sani-Supp Adult RECTAL 08/20/17 00:44 1 supp ONETIME ONE Administration Sodium Chloride 73 mls @ 3.3 mls/sec 08/20/17 03:08 08/20/17 03:17 Normal Saline IV 08/20/17 03:09 3.3 mls/sec ASDIRECTED STA Administration Iopamidol 100 ml 08/20/17 03:08 08/20/17 03:17 Isovue-300 (61%) IV 08/20/17 03:09 100 ml . DIRECTED STA Administration Ondansetron HCl 4 mg 08/20/17 01:18 08/20/17 01:23 Zofran Odt PO 08/20/17 01:19 4 mg ONETIME ONE Administration Tramadol HCl 50 mg 08/20/17 03:30 08/20/17 03:34 Ultram PO 08/20/17 03:31 50 mg ONETIME ONE Administration - Radiology Interpretation Free Text/Narrative:: Flat and upright abdominal [id number] in descending colon, air fluid levels RUQ. CT abd/pelvis with IV contrast-wall thickening of the distal sigmoid colon ? causing functional obstruction. Diverticulosis. CT Results Date: 08/20/17 CT Results Time: 03:50 Departure - Departure Time of Disposition: 03:59 Disposition: Admitted As Inpatient 67 Condition: Fair Clinical Impression: Intestinal functional disorder Bowel obstruction Qualifiers: Intestinal obstruction type: unspecified Intestinal obstruction extent: partial Qualified Code(s): K56.600 - Partial intestinal obstruction, unspecified as to cause - Discharge Information Referrals: Hermann Holbrook MD [Primary Care Provider] - Forms: ED Department Discharge - My Orders Last 24 Hours: My Active Orders 08/20/17 01:28 Abdomen 2V AP Flat Upright [CR] Stat 08/20/17 01:51 Enema [RC] ASDIRECTED 08/20/17 02:50 Abdomen Pelvis w Cont [CT] Stat - Assessment/Plan Last 24 Hours: My Active Orders 08/20/17 01:28 Abdomen 2V AP Flat Upright [CR] Stat 08/20/17 01:51 Enema [RC] ASDIRECTED 08/20/17 02:50 Abdomen Pelvis w Cont [CT] Stat
[2017-08-20] MEDS ORDERED: Glycerin Adult 2.1 GM Supp RECTAL ONE (00:43)
[2017-08-20] MEDS ORDERED: Ondansetron 4 MG Tab.DIS PO ONE (01:18)
[2017-08-20] MEDS ORDERED: Iopamidol 612 MG/ML 100 ML Bottle IV STA (03:08)
[2017-08-20] MEDS ORDERED: traMADol 50 MG Tab PO ONE (03:30)
[2017-08-20] MEDS ORDERED: Lactated Ringers 1,000 ML IV SCH ×2 (04:00→10:15)
[2017-08-20] MEDS ORDERED: Ondansetron 4 MG/2 ML SDV IVPUSH ONE (04:39)
[2017-08-20] MEDS ORDERED: Morphine 2 MG/ML Syringe IVPUSH ONE (04:41)
--- NOTE | 2017-08-20 05:09 | PCM.HP ---
H&P History of Present Illness - General Date of Service: 08/27/17 Admit Problem/Dx: Admission Diagnosis/Problem Admission Diagnosis/Problem Small bowel obstruction Source of Information: Patient History Limitations: Reports: No Limitations - History of Present Illness Initial Comments - Free Text/Narative: 82 yo female was seen in the clinic today for constipation. They prescribed mag citrate and Miralax. She was unable to keep the Mag citrate down and still has not had a BM so comes now to the ER. Last BM was last Friday. Has some cramping. Constipation from a road trip over the weekend to the [facility]. Also, tried a Fleets enema at home without results. Has had a cholecystectomy and appendectomy. Onset: Gradual Onset Date: 08/15/17 Duration: Day(s):, Getting Worse Location: Reports: Abdomen Quality: Reports: Other (crampy) Severity: Moderate Improves with: Reports: None Worsens with: Reports: Other (time since last BM) Context: Reports: Other (No recent BM, hx of constipation) Associated Symptoms: Reports: Nausea/Vomiting (only after meds) Flat and upright abdominal [id number] in descending colon, air fluid levels RUQ. CT abd/pelvis with IV contrast-wall thickening of the distal sigmoid colon ? causing functional obstruction. Diverticulosis. CT Results Date: 08/20/17 CT Results Time: 03:50 Departure - Departure Time of Disposition: 03:59 Disposition: Admitted As Inpatient 67 Condition: Fair Clinical Impression: Intestinal functional disorder Bowel obstruction Qualifiers: Intestinal obstruction type: unspecified Intestinal obstruction extent: partial Qualified Code(s): K56.600 - Partial intestinal obstruction, unspecified as to cause Onset of Symptoms: Reports: Gradual Duration of Symptoms: Reports: Day(s): (2), Waxing/Waning Location: Reports: Abdomen Quality: Reports: Sharp (reports feels like labor pain, had 6 children) Severity: Severe Improves with: Reports: None Worsens with: Reports: None Associated Symptoms: Reports: Loss of Appetite, Nausea/Vomiting - Related Data Allergies/Adverse Reactions: Allergies Allergy/AdvReac Type Severity Reaction Status Date / Time levofloxacin Allergy Hives Verified 08/20/17 00:32 Home Medications: Home Meds Acetaminophen [Tylenol] 650 mg PO Q4HR PRN 11/11/12 [History] Albuterol Sulfate [Proair Hfa] 2 puff INH Q4H PRN 11/11/12 [History] Aspirin [Halfprin] 81 mg PO BEDTIME 11/11/12 [History] Calcium Carbonate [Calcium] 600 mg PO DAILY 11/11/12 [History] Fluticasone Propionate [Flonase] 2 spray SANYA BID 07/13/14 [History] Clopidogrel Bisulfate [Clopidogrel] 75 mg PO DAILY 07/20/17 [History] Fexofenadine/Pseudoephedrine [Jeimy-D 24 Hour Tablet] 1 tab PO DAILY 07/20/17 [History] Gabapentin [Neurontin] 400 mg PO DAILY 07/20/17 [History] Isosorbide Mononitrate [Isosorbide Mononitrate ER] 30 mg PO DAILY 07/20/17 [ History] Metoprolol Succinate [Toprol XL 50mg] 50 mg PO DAILY 07/20/17 [History] atorvaSTATin [Lipitor] 40 mg PO BEDTIME 07/20/17 [History] Rifampin 600 mg PO DAILY #20 capsule 07/21/17 [Rx] Past Medical History HEENT History: Reports: Impaired Vision Cardiovascular History: Reports: Stents Respiratory History: Reports: COPD, SOB, TB 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 Gastrointestinal History: Reports: Diverticulosis, Pancreatitis 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: Musculoskeletal History: Reports: Osteoarthritis, Other (See Below) Other Musculoskeletal History: osteopenia Oncologic (Cancer) History: Reports: Squamous Cell Carcinoma Dermatologic History: Reports: Other (See Below) Other Dermatologic History: squamous ca thumb - Infectious Disease History Infectious Disease History: Reports: TB Other Infectious Disease History: valley fever - Past Surgical History Other HEENT Surgeries/Procedures: 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 Respiratory Surgical History: Reports: Lung Biopsies GI Surgical History: Reports: Appendectomy, Cholecystectomy, Colonoscopy Social & Family History - Tobacco Use Smoking Status *Q: Never Smoker - Caffeine Use Caffeine Use: Reports: Coffee - Recreational Drug Use Recreational Drug Use: No H&P Review of Systems - Review of Systems: Review Of Systems: See Below General: Reports: Malaise, Fatigue HEENT: Reports: No Symptoms Pulmonary: Reports: No Symptoms Cardiovascular: Reports: No Symptoms Gastrointestinal: Reports: Abdominal Pain, Decreased Appetite, Nausea, Vomiting Genitourinary: Reports: No Symptoms Musculoskeletal: Reports: No Symptoms Skin: Reports: No Symptoms Psychiatric: Reports: No Symptoms Neurological: Reports: No Symptoms Hematologic/Lymphatic: Reports: No Symptoms Immunologic: Reports: No Symptoms Exam - Exam Exam: See Below - Vital Signs Vital Signs: Last Vital Signs Temp 36.9 C 08/20/17 04:13 Pulse 84 08/20/17 04:13 Resp 16 08/20/17 04:13 BP 171/80 H 08/20/17 04:13 Pulse Ox 93 L 08/20/17 04:13 Weight: 73.2 kg - Exam General: Alert, Oriented, Cooperative HEENT: PERRLA, Conjunctiva Clear, EACs Clear, EOMI, Hearing Intact, Mucosa Moist & [place], Nares Patent, Normal Nasal Septum, Posterior Pharynx Clear, Pupils Equal, Pupils Reactive Neck: Supple, Trachea Midline, 2 Lungs: Clear to Auscultation Cardiovascular: Regular Rate, Regular Rhythm GI/Abdominal Exam: Distended, Tender, Abnormal Bowel Sounds (Female) Exam: Normal External Exam Back Exam: Normal Inspection, Full Range of Motion, NT Extremities: Normal Inspection, Normal Range of Motion, Non-Tender, No Pedal Edema, Normal Capillary Refill Skin: Warm, Dry, Intact Neurological: Cranial Nerves Intact, Reflexes Equal Bilateral Neuro Extensive - Mental Status: Alert, Oriented x3, Normal Mood/Affect, Normal Cognition Neuro Extensive - Motor, Sensory, Reflexes: CN II-XII Intact, Normal Gait, Normal Reflexes Psychiatric: Alert, Normal Affect, Normal Mood - Patient Data Lab Results Last 24 hrs: Laboratory Results - last 24 hr 08/20/17 08/20/17 Range/Units 04:06 04:06 WBC 9.6 (4.5-11.0) K/uL RBC 4.81 (3.30-5.50) M/uL Hgb 14.5 (12.0-15.0) g/dL Hct 43.1 (36.0-48.0) % MCV 90 (80-98) fL MCH 30 (27-31) pg MCHC 34 (32-36) % Plt Count 183 (150-400) K/uL Sodium Cancelled Potassium Cancelled Chloride Cancelled Carbon Dioxide Cancelled Anion Gap Cancelled BUN Cancelled Creatinine Cancelled Est Cr Clr Drug Dosing Cancelled Estimated GFR (MDRD) Cancelled Glucose Cancelled Calcium Cancelled Result Diagrams: 08/20/17 04:06 08/20/17 04:06 - Problem List (1) Bowel obstruction SNOMED Code(s): 48819390 ICD Code: K56.609 - UNSP INTESTNL OBST, UNSP TO PARTIAL VERSUS COMPLETE OBST Status: Acute Priority: High Current Visit: Yes Qualifiers: Intestinal obstruction type: unspecified Intestinal obstruction extent: partial Qualified Code(s): K56.600 - Partial intestinal obstruction, unspecified as to cause (2) Benign essential hypertension SNOMED Code(s): 9081008 ICD Code: I10 - ESSENTIAL (PRIMARY) HYPERTENSION Status: Chronic Priority : Medium Current Visit: No (3) CAD (coronary artery disease), [place] coronary artery SNOMED Code(s): 7463600250980 ICD Code: I25.10 - ATHSCL HEART DISEASE OF [place] CORONARY ARTERY W/O ANG PCTRS Status: Chronic Priority: Medium Current Visit: No (4) COPD (chronic obstructive pulmonary disease) SNOMED Code(s): 87316461 ICD Code: J44.9 - CHRONIC OBSTRUCTIVE PULMONARY DISEASE, UNSPECIFIED Status : Chronic Priority: Low Current Visit: No Qualifiers: Chronic bronchitis type: unspecified Problem List Initiated/Reviewed/Updated: Yes Orders Last 24hrs: Active Orders 24 hr Category Date Time Status Patient Status Manage Transfer [TRANSFER] Routine ADT 08/20/17 04:57 Ordered Enema [RC] ASDIRECTED Care 08/20/17 01:51 Active NG [Gastrointestinal Tube Mgmt] [RC] ASDIRECTED Care 08/20/17 04:44 Active Abdomen 2V AP Flat Upright [CR] Stat Exams 08/20/17 01:28 Taken Abdomen Pelvis w Cont [CT] Stat Exams 08/20/17 02:50 Taken AMYLASE [CHEM] Urgent Lab 08/20/17 04:40 Ordered COMPREHENSIVE METABOLIC PN,CMP [CHEM] Urgent Lab 08/20/17 04:39 Ordered INR,PT,PROTHROMBIN TIME [COAG] Urgent Lab 08/20/17 04:39 Ordered LIPASE [CHEM] Urgent Lab 08/20/17 04:40 Ordered MAGNESIUM [CHEM] Urgent Lab 08/20/17 04:39 Ordered UA W/MICROSCOPIC [URIN] Stat Lab 08/20/17 03:55 Ordered Lactated Ringers [Ringers, Lactated] 1,000 ml Med 08/20/17 04:00 Active IV ASDIRECTED NG [Nasogastric Orogastric Tube Insertion] [OM.PC] Oth 08/20/17 04:44 Ordered Routine Resuscitation Status Routine Resus Stat 08/20/17 05:01 Ordered Medication Orders Lactated Ringer's (Ringers, Lactated) 1,000 mls @ 150 mls/hr IV ASDIRECTED [facility] Last Admin: 08/20/17 04:18 Dose: 150 mls/hr Assessment/Plan Comment:: ASSESSMENT / PLAN -This is 82 y.o. female present to ER with complaints of acute abdominal pain starting Friday night, feeling of abdominal pain, constipation, nausea. She tried laxative x2 on Friday, x2 on Friday and enema without any improvement. While in ER had xray of abdomen and CT of abdomen-pelvis which shows moderate wall thickening of the gastric antrum is present. this may be due to gastritis or peptic ulcer disease and confirmation with barium gi series or endoscopy may be helpful. There is mild diverticulosis with focal wall thickening present within the distal sigmoid colon. clinical correlation is recommended to exclude diverticulitis or mild colitis causing functional obstruction of the colon. Plan bowel obstruction -Admit to [address] [place] [address] for further monitoring -IV Fluids for rehydration LR at 125 mL per hour -keep NPO -NG tube placement with low intermittent suction -consult to Surgery Service COPD -albuterol nebulizer every 4 hours as needed for wheezing and cough -Duo nebu ; schedule nebulize every 6 hours -Advise to notify nurses of any chest pain or other symptoms Maintenance issues -Orders home meds: hold except for cardiovascular medicaiton -Nutrition: NPO -Hart catheter not indicated at this time -DVT: SCD -PPI: IV Protonix 40mg bid CODE STATUS: FULL CODE Admission status: Admit to [address] [place] [address] Admission justification. This patient will be admitted for inpatient services and is medically appropriate meeting medical necessity for inpatient admission as outlined in my documentation. I reasonably expect the patient will require inpatient services that span. Time over 2 midnights. I reasonably expect this patient to be discharged or transferred within 96 hours after admission to the critical access hospital. Disposition; home Primary care provider: Dr. Holbrook Hospitalist: Dr. Dee
[2017-08-20] MEDS ORDERED: Albuterol 0.083% 2.5 MG/3 ML Neb Soln NEB PRN (05:40)
[2017-08-20] MEDS ORDERED: Albuterol/Ipratropium 3.0-0.5 MG/3 ML Neb Soln NEB PRN (05:40)
[2017-08-20] MEDS ORDERED: Ondansetron 4 MG Tab.DIS PO PRN (05:40)
[2017-08-20] MEDS ORDERED: Pantoprazole 40 MG Vial IV SCH (05:40)
[2017-08-20] MEDS ORDERED: LORazepam 2 MG/ML SDV IV PRN (05:40)
[2017-08-20] MEDS ORDERED: Naloxone 0.4 MG/ML SDV IV PRN (06:17)
[2017-08-20] MEDS ORDERED: HYDROmorphone/Normal Saline 15 MG/30 ML PCA IV PRN (06:17)
[2017-08-20] MEDS ORDERED: fentaNYL 100 MCG/2 ML SDV IVPUSH ONE (07:35)
[2017-08-20] MEDS: Rifampin 150 MG Cap PO SCH (08:08)
[2017-08-20] MEDS: Isosorbide Mononitrate 30 MG Tab.ER PO SCH (08:08)
[2017-08-20] MEDS: Gabapentin 400 MG Cap PO SCH (08:08)
[2017-08-20] MEDS: Metoprolol Succinate 50 MG Tab.ER PO SCH (08:08)
--- NOTE | 2017-08-20 08:38 | CR ---
Abdomen 2V AP Flat Upright CLINICAL HISTORY: Multiple obstruction FINDINGS: There is dilated the bowel with scattered air-fluid levels in the right abdomen. The this a ppears to be right colon. The there is a large amount of stool in the splenic flexure and descending colon. No free air is seen IMPRESSION: Dilated right colon. There is moderate retained stool in the left with possible left colo n fecal impaction . Short-term follow-up after course of therapy is recommended.
[2017-08-20] MEDS ORDERED: fentaNYL 100 MCG/2 ML SDV IVPUSH PRN (10:01)
[2017-08-20] MEDS ORDERED: oxyCODONE 5 MG Tab PO PRN (10:04)
[2017-08-20] MEDS ORDERED: Acetaminophen 325 MG Tab PO PRN (10:04)
--- NOTE | 2017-08-20 10:08 | PCM.PN ---
- General Info Date of Service: 08/20/17 Functional Status: Denies: Pain Controlled - Review of Systems General: Denies: Fever Gastrointestinal: Reports: Abdominal Pain Systems Review Comment:: There were no acute events since the time of admission. Patient has had ongoing pain and has had some nausea after 2 doses of hydromorphone. She did receive a dose of fentanyl this morning which did improve her abdominal pain and did not cause as much nausea. She feels that the NG tube is irritating her throat and making her nausea worse. There has been minimal NG tube drainage. No bowel movement as of yet. No vomiting. - Patient Data Vitals - Most Recent: Last Vital Signs Temp 35.9 C 08/20/17 09:30 Pulse 89 08/20/17 09:30 Resp 16 08/20/17 09:30 BP 175/69 H 08/20/17 09:30 Pulse Ox 94 L 08/20/17 09:30 Weight - Most Recent: 74.389 kg Lab Results Last 24 Hours: Laboratory Results - last 24 hr 08/20/17 08/20/17 08/20/17 Range/Units 03:55 04:05 04:05 WBC (4.5-11.0) K/uL RBC (3.30-5.50) M/uL Hgb (12.0-15.0) g/dL Hct (36.0-48.0) % MCV (80-98) fL MCH (27-31) pg MCHC (32-36) % Plt Count (150-400) K/uL PT 10.5 (9.5-12.0) sec INR 0.98 (0.80-1.20) Sodium 138 L (140-148) mmol/L Potassium 3.3 L (3.6-5.2) mmol/L Chloride 102 (100-108) mmol/L Carbon Dioxide 29 (21-32) mmol/L Anion Gap 10.3 (5.0-14.0) mmol/L BUN 11 (7-18) mg/dL Creatinine 1.0 (0.6-1.0) mg/dL Est Cr Clr Drug Dosing 41.30 mL/min Estimated GFR (MDRD) 53 L (>60) Glucose 135 H (74-106) mg/dL Calcium 8.7 (8.5-10.1) mg/dL Magnesium 2.1 (1.8-2.4) mg/dL Total Bilirubin 0.7 (0.2-1.0) mg/dL AST 18 (15-37) U/L ALT 25 (12-78) U/L Alkaline Phosphatase 100 (46-116) U/L Total Protein 7.5 (6.4-8.2) g/dL Albumin 3.6 (3.4-5.0) g/dL Globulin 3.9 H (2.3-3.5) g/dL Albumin/Globulin Ratio 0.9 L (1.2-2.2) Amylase (25-115) U/L Lipase (73-393) U/L Urine Color Yellow Urine Appearance Slightly cloudy Urine pH 8.0 (4.5-8.0) Ur Specific [place] 1.010 (1.008-1.030) Urine Protein Negative (NEGATIVE) mg/dL Urine Glucose (UA) Normal (NEGATIVE) mg/dL Urine Ketones Negative (NEGATIVE) mg/dL Urine Occult Blood Negative (NEGATIVE) Urine Nitrite Negative (NEGATIVE) Urine Bilirubin Negative (NEGATIVE) Urine Urobilinogen Normal (NORMAL) mg/dL Ur Leukocyte Esterase Negative (NEGATIVE) Urine RBC 0-5 (0-5) Urine WBC 0-5 (0-5) Ur Epithelial Cells Not seen Amorphous Sediment Many Urine Bacteria Moderate Urine Mucus Not seen 08/20/17 08/20/17 08/20/17 Range/Units 04:05 04:06 04:06 WBC 9.6 (4.5-11.0) K/uL RBC 4.81 (3.30-5.50) M/uL Hgb 14.5 (12.0-15.0) g/dL Hct 43.1 (36.0-48.0) % MCV 90 (80-98) fL MCH 30 (27-31) pg MCHC 34 (32-36) % Plt Count 183 (150-400) K/uL PT (9.5-12.0) sec INR (0.80-1.20) Sodium Cancelled (140-148) mmol/L Potassium Cancelled (3.6-5.2) mmol/L Chloride Cancelled (100-108) mmol/L Carbon Dioxide Cancelled (21-32) mmol/L Anion Gap Cancelled (5.0-14.0) mmol/L BUN Cancelled (7-18) mg/dL Creatinine Cancelled (0.6-1.0) mg/dL Est Cr Clr Drug Dosing Cancelled mL/min Estimated GFR (MDRD) Cancelled (>60) Glucose Cancelled (74-106) mg/dL Calcium Cancelled (8.5-10.1) mg/dL Magnesium (1.8-2.4) mg/dL Total Bilirubin (0.2-1.0) mg/dL AST (15-37) U/L ALT (12-78) U/L Alkaline Phosphatase (46-116) U/L Total Protein (6.4-8.2) g/dL Albumin (3.4-5.0) g/dL Globulin (2.3-3.5) g/dL Albumin/Globulin Ratio (1.2-2.2) Amylase 89 (25-115) U/L Lipase 182 (73-393) U/L Urine Color Urine Appearance Urine pH (4.5-8.0) Ur Specific [place] (1.008-1.030) Urine Protein (NEGATIVE) mg/dL Urine Glucose (UA) (NEGATIVE) mg/dL Urine Ketones (NEGATIVE) mg/dL Urine Occult Blood (NEGATIVE) Urine Nitrite (NEGATIVE) Urine Bilirubin (NEGATIVE) Urine Urobilinogen (NORMAL) mg/dL Ur Leukocyte Esterase (NEGATIVE) Urine RBC (0-5) Urine WBC (0-5) Ur Epithelial Cells Amorphous Sediment Urine Bacteria Urine Mucus Med Orders - Current: Current Medications Acetaminophen (Tylenol) 650 mg PO Q4H PRN PRN Reason: Pain/Fever Albuterol (Proventil Neb Soln) 2.5 mg NEB Q4H PRN PRN Reason: Shortness Of Breath/wheezing Albuterol/Ipratropium (Duoneb 3.0-0.5 Mg/3 Ml) 3 ml NEB QID PRN PRN Reason: Shortness Of Breath/wheezing Fentanyl (Sublimaze) 25 mcg IVPUSH Q2H PRN PRN Reason: Pain Gabapentin (Neurontin) 400 mg PO DAILY [facility] Last Admin: 08/20/17 08:08 Dose: Not Given Piperacillin Sod/Tazobactam (Sod 3.375 gm/ Sodium Chloride) 50 mls @ 100 mls/ hr IV Q6H [facility] Potassium Chloride 20 meq/Lidocaine HCl 2 ml/ Sodium Chloride 112 mls @ 50 mls/ hr IV Q2H [facility] Stop: 08/20/17 14:14 Lactated Ringer's (Ringers, Lactated) 1,000 mls @ 75 mls/hr IV ASDIRECTED [facility] Isosorbide Mononitrate (Imdur) 30 mg PO DAILY [facility] Last Admin: 08/20/17 08:08 Dose: Not Given Lorazepam (Ativan) 1 mg IV Q6H PRN PRN Reason: Nausea/Vomiting Last Admin: 08/20/17 10:01 Dose: 1 mg Methylprednisolone Sodium Succinate (Solu-Medrol) 125 mg IVPUSH ONETIME ONE Stop: 08/20/17 10:04 Metoprolol Succinate (Toprol Xl) 50 mg PO DAILY [facility] Last Admin: 08/20/17 08:08 Dose: Not Given Naloxone HCl (Narcan) 0.1 mg IV ASDIRECTED PRN PRN Reason: decreased respiratory rate Ondansetron HCl (Zofran Odt) 4 mg PO Q6H PRN PRN Reason: Nausea able to take PO Oxycodone HCl (Oxycodone) 5 mg PO Q4H PRN PRN Reason: Pain Rifampin (Rifadin) 600 mg PO DAILY [facility] Last Admin: 08/20/17 08:08 Dose: Not Given Discontinued Medications Bisacodyl (Dulcolax) 10 mg RECTAL ONETIME ONE Stop: 08/20/17 00:38 Last Admin: 08/20/17 00:44 Dose: 10 mg Fentanyl (Sublimaze) 25 mcg IVPUSH ONETIME ONE Stop: 08/20/17 07:36 Last Admin: 08/20/17 07:50 Dose: 25 mcg Glycerin (Sani-Supp Adult) 1 supp RECTAL ONETIME ONE Stop: 08/20/17 00:44 Last Admin: 08/20/17 00:46 Dose: 1 supp Hydromorphone HCl (Dilaudid Sprinkler Helper 15 Mg In Ns 30 Ml) 0 mg IV ASDIRECTED PRN; Protocol PRN 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 DIRECTED STA Stop: 08/20/17 03:09 Last Admin: 08/20/17 03:17 Dose: 100 ml Morphine Sulfate (Morphine) 1 mg IVPUSH ONETIME ONE Stop: 08/20/17 04:42 Last Admin: 08/20/17 04:45 Dose: 1 mg Ondansetron HCl (Zofran Odt) 4 mg PO ONETIME ONE Stop: 08/20/17 01:19 Last Admin: 08/20/17 01:23 Dose: 4 mg Ondansetron HCl (Zofran) 4 mg IVPUSH ONETIME ONE Stop: 08/20/17 04:40 Last Admin: 08/20/17 04:44 Dose: 4 mg Pantoprazole Sodium (Protonix Iv) 40 mg IV Q12H [facility] Last Admin: 08/20/17 06:01 Dose: 40 mg Tramadol HCl (Ultram) 50 mg PO ONETIME ONE Stop: 08/20/17 03:31 Last Admin: 08/20/17 03:34 Dose: 50 mg - Exam Quality Assessment: No: Supplemental Oxygen General: Alert, Oriented, Cooperative, No Acute Distress Lungs: Normal Respiratory Effort Cardiovascular: Regular Rate, Regular Rhythm GI/Abdominal Exam: Soft, Distended, Tender, Abnormal Bowel Sounds (hypoactive) Extremities: No Pedal Edema Skin: Warm, Dry Psy/Mental Status: Alert, Normal Affect - Problem List Review Problem List Initiated/Reviewed/Updated: Yes - My Orders Last 24 Hours: My Active Orders 08/20/17 10:01 fentaNYL [Sublimaze] 25 mcg IVPUSH Q2H PRN 08/20/17 10:03 methylPREDNISolone Sod Succ [Solu-MEDROL] 125 mg IVPUSH ONETIME ONE 08/20/17 10:04 Acetaminophen [Tylenol] 650 mg PO Q4H PRN oxyCODONE 5 mg PO Q4H PRN 08/20/17 10:05 NG [Nasogastric Orogastric Tube Removal] [OM.PC] Routine 06/20/18 10:15 Lactated Ringers [Ringers, Lactated] 1,000 ml IV ASDIRECTED Piperacillin/Tazobactam [Zosyn] 3.375 gm Sodium Chloride 0.9% [Normal Saline] 50 ml IV Q6H Potassium Chloride 20 MEQ,Lidocaine 1% 2 ML IN 100ML NS @ 50 MLS/HR Potassium Chloride 20 meq Lidocaine 1% [Xylocaine 1%] 2 ml Sodium Chloride 0.9% [Normal Saline] 100 ml IV Q2H - Plan Plan:: ASSESSMENT / PLAN Suspect sigmoid diverticulitis - left lower quadrant abdominal pain with inflammation of the sigmoid colon in the left lower quadrants. The inflammation may be causing obstruction-like syndrome but there is no strong evidence to support actual bowel obstruction. Minimal NG tube drainage. -IV fluids -Pain control -keep NPO -Antibiotic coverage with piperacillin/tazobactam -Remove NG Hypokalemia - mild and this will be replaced. -40 mEq of potassium this morning -Recheck in the morning COPD - stable at this time. -albuterol nebulizer every 4 hours as needed for wheezing and cough -Duo nebu ; schedule nebulize every 6 hours Maintenance issues -Nutrition: NPO -Hart catheter not indicated at this time -DVT: SCD -PPI: PPI Disposition - anticipate discharge home after the hospital stay Chris Dee M.D.
[2017-08-20] MEDS ORDERED: methylPREDNISolone Sodium Succinate 125 MG/2 ML SDV IVPUSH ONE (11:00)
[2017-08-20] MEDS: Piperacillin/Tazobactam/Dext 3.375 GM in Premix Bag 1 BAG IV SCH ×3 (11:19→23:25)
[2017-08-20] MEDS: Potassium Chloride 20 MEQ, Lidocaine 1% 2 ML in Sodium Chloride 0.9% 100 ML IV SCH ×2 (12:04→13:59)
[2017-08-21] MEDS: Piperacillin/Tazobactam/Dext 3.375 GM in Premix Bag 1 BAG IV SCH ×2 (04:20→10:36)
[2017-08-21] MEDS: Gabapentin 400 MG Cap PO SCH (10:29)
[2017-08-21] MEDS: Isosorbide Mononitrate 30 MG Tab.ER PO SCH (10:29)
[2017-08-21] MEDS: Metoprolol Succinate 50 MG Tab.ER PO SCH (10:31)
[2017-08-21] MEDS: Rifampin 150 MG Cap PO SCH ×2 (10:32→10:40)
[2017-08-21 12:01] VITALS: BP 121/64
--- NOTE | 2017-08-21 13:11 | PCM.DCSUM1 ---
Discharge Summary - Hospital Course Brief History: 82-year-old female with history of irritable bowel syndrome, coronary artery disease and recent concerns regarding tuberculosis who presented with acute left lower quadrant abdominal pain and was admitted for further management. CT scan in the emergency room suggested possible colitis versus diverticulitis. Diagnosis: Stroke: No - Discharge Data Discharge Date: 08/21/17 Discharge Disposition: Home, Self-Care 01 Condition: Good - Discharge Diagnosis/Problem(s) (1) Acute diverticulitis SNOMED Code(s): 529000574 ICD Code: K57.92 - DVTRCLI OF INTEST, PART UNSP, W/O PERF OR ABSCESS W/O BLEED Status: Acute Current Visit: Yes - Patient Summary/Data Hospital Course: Leatha presented to the emergency room with acute left lower quadrant abdominal pain. Laboratory studies were relatively unremarkable. A CT scan of the abdomen and pelvis was suggestive of inflammation of the distal sigmoid colon concerning for either colitis or possibly diverticulitis. there was some concern for a possible partial obstruction and an NG tube was placed. She was started on IV fluids and pain control and admitted for further management. the morning after admission her clinical picture was reviewed and seemed to fit acute diverticulitis of the best. She had had minimal NG tube output and this was discontinued. IV antibiotics were initiated. Pain control was adjusted. She also received a single dose of IV Solu-Medrol. Symptoms improved fairly quickly after medication adjustment. She has had minimal pain since that time. She has not had any nausea or vomiting. She has not had any fevers. On the morning of discharge she was noted to have several large bowel movements. She tolerated a full liquid diet without any increase in pain or change in symptoms. She is interested in going home at this point I believe she is safe for outpatient management. This seems to be a relatively mild episode of diverticulitis so antibiotics will be prescribed for a total of 7 days. She will consume a liquid and/or soft diet for the next several days before reintroducing normal fluids. She will follow-up next week if symptoms do not continue to improve. - Patient Instructions Diet: Regular Diet as Tolerated Diet, Other: soft and bland foods for the next several days Activity: As Tolerated Driving: May Drive Today Showering/Bathing: May Shower Notify Provider of: Fever, Increased Pain, Nausea and/or Vomiting Other/Special Instructions: 1. You were in the hospital for management of abdominal pain caused by acute sigmoid diverticulitis. Your pain has been improving with current therapy but may take several more days or even a week to completely resolve. I would recommend that you consume a diet with liquids as well as soft and bland foods for the next several days before returning to your normal diet. I do also recommend additional antibiotic therapy with amoxicillin/ clavulonate (Augmentin). You should take one tablet twice daily with food for 11 doses. Your next dose is due tonight. You can use acetaminophen or ibuprofen as needed for your pain. 2. Continue your usual home medications as previously prescribed. 3. Follow up as needed next week if her symptoms do not continue to get better or if they get worse. 4. Seek medical attention if you develop fever greater than 101, you have severe abdominal pain, persistent vomiting or severe diarrhea. - Discharge Plan Prescriptions/Med Rec: Amoxicillin/Clavulanate K [Augmentin 875-125 MG] 1 tab PO BID #11 tablet Home Medications: Home Meds Acetaminophen [Tylenol] 650 mg PO Q4HR PRN 11/11/12 [History] Albuterol Sulfate [Proair Hfa] 2 puff INH Q4H PRN 11/11/12 [History] Aspirin [Halfprin] 81 mg PO BEDTIME 11/11/12 [History] Calcium Carbonate [Calcium] 600 mg PO DAILY 11/11/12 [History] Fluticasone Propionate [Flonase] 2 spray SANYA BID 07/13/14 [History] Clopidogrel Bisulfate [Clopidogrel] 75 mg PO DAILY 07/20/17 [History] Fexofenadine/Pseudoephedrine [Jeimy-D 24 Hour Tablet] 1 tab PO DAILY 07/20/17 [History] Gabapentin [Neurontin] 400 mg PO DAILY 07/20/17 [History] Isosorbide Mononitrate [Isosorbide Mononitrate ER] 30 mg PO DAILY 07/20/17 [ History] Metoprolol Succinate [Toprol XL 50mg] 50 mg PO DAILY 07/20/17 [History] atorvaSTATin [Lipitor] 40 mg PO BEDTIME 07/20/17 [History] Amoxicillin/Clavulanate K [Augmentin 875-125 MG] 1 tab PO BID #11 tablet [Rx] Patient Handouts: Diverticulitis, Amoxicillin; Clavulanic Acid tablets Referrals: Hermann Holbrook MD [Primary Care Provider] - (f/u as needed if symptoms do not continue to improve) - Discharge Summary/Plan Comment DC Time >30 min.: No (25) - Patient Data Vitals - Most Recent: Last Vital Signs Temp 36.8 C 08/21/17 12:00 Pulse 62 08/21/17 12:00 Resp 16 08/21/17 12:00 BP 121/64 08/21/17 12:00 Pulse Ox 62 L 08/21/17 12:00 Weight - Most Recent: 74.389 kg I&O - Last 24 hours: Intake & Output 08/20/17 08/21/17 08/21/17 22:59 06:59 14:59 Intake Total 1345 970 100 Output Total 200 400 Balance 1145 570 100 Med Orders - Current: Current Medications Acetaminophen (Tylenol) 650 mg PO Q4H PRN PRN Reason: Pain/Fever Albuterol (Proventil Neb Soln) 2.5 mg NEB Q4H PRN PRN Reason: Shortness Of Breath/wheezing Albuterol/Ipratropium (Duoneb 3.0-0.5 Mg/3 Ml) 3 ml NEB QID PRN PRN Reason: Shortness Of Breath/wheezing Fentanyl (Sublimaze) 25 mcg IVPUSH Q2H PRN PRN Reason: Pain Gabapentin (Neurontin) 400 mg PO DAILY [facility] Last Admin: 08/21/17 10:29 Dose: 400 mg Piperacillin/Tazobactam/ (Dextrose 3.375 gm/ Premix) 50 mls @ 100 mls/hr IV Q6H [facility] Last Admin: 08/21/17 10:36 Dose: 100 mls/hr Lactated Ringer's (Ringers, Lactated) 1,000 mls @ 75 mls/hr IV ASDIRECTED [facility] Last Admin: 08/20/17 23:26 Dose: 75 mls/hr Isosorbide Mononitrate (Imdur) 30 mg PO DAILY [facility] Last Admin: 08/21/17 10:29 Dose: 30 mg Lorazepam (Ativan) 1 mg IV Q6H PRN PRN Reason: Nausea/Vomiting Last Admin: 08/20/17 10:01 Dose: 1 mg Metoprolol Succinate (Toprol Xl) 50 mg PO DAILY [facility] Last Admin: 08/21/17 10:31 Dose: 50 mg Naloxone HCl (Narcan) 0.1 mg IV ASDIRECTED PRN PRN Reason: decreased respiratory rate Ondansetron HCl (Zofran Odt) 4 mg PO Q6H PRN PRN Reason: Nausea able to take PO Oxycodone HCl (Oxycodone) 5 mg PO Q4H PRN PRN Reason: Pain Rifampin (Rifadin) 600 mg PO DAILY [facility] Last Admin: 08/21/17 10:40 Dose: Not Given Discontinued Medications Bisacodyl (Dulcolax) 10 mg RECTAL ONETIME ONE Stop: 08/20/17 00:38 Last Admin: 08/20/17 00:44 Dose: 10 mg Fentanyl (Sublimaze) 25 mcg IVPUSH ONETIME ONE Stop: 08/20/17 07:36 Last Admin: 08/20/17 07:50 Dose: 25 mcg Glycerin (Sani-Supp Adult) 1 supp RECTAL ONETIME ONE Stop: 08/20/17 00:44 Last Admin: 08/20/17 00:46 Dose: 1 supp Hydromorphone HCl (Dilaudid Enterprise Resource Analyst 15 Mg In Ns 30 Ml) 0 mg IV ASDIRECTED PRN; Protocol PRN Reason: [employer] PAIN CONTROL Last Admin: 08/20/17 06:36 Dose: 15 mg Sodium Chloride (Normal Saline) 73 mls @ 3.3 mls/sec IV ASDIRECTED STA Stop: 08/20/17 03:09 Last Admin: 08/20/17 03:17 Dose: 3.3 mls/sec Lactated Ringer's (Ringers, Lactated) 1,000 mls @ 150 mls/hr IV ASDIRECTED [facility] Last Admin: 08/20/17 04:18 Dose: 150 mls/hr Potassium Chloride 20 meq/Lidocaine HCl 2 ml/ Sodium Chloride 112 mls @ 56 mls/ hr IV Q2H ECTOR Stop: 08/20/17 14:59 Last Admin: 08/20/17 13:59 Dose: 56 mls/hr Iopamidol (Isovue-300 (61%)) 100 ml IV . DIRECTED STA Stop: 08/20/17 03:09 Last Admin: 08/20/17 03:17 Dose: 100 ml Methylprednisolone Sodium Succinate (Solu-Medrol) 125 mg IVPUSH ONETIME ONE Stop: 08/20/17 11:01 Last Admin: 08/20/17 11:27 Dose: 125 mg Morphine Sulfate (Morphine) 1 mg IVPUSH ONETIME ONE Stop: 08/20/17 04:42 Last Admin: 08/20/17 04:45 Dose: 1 mg Ondansetron HCl (Zofran Odt) 4 mg PO ONETIME ONE Stop: 08/20/17 01:19 Last Admin: 08/20/17 01:23 Dose: 4 mg Ondansetron HCl (Zofran) 4 mg IVPUSH ONETIME ONE Stop: 08/20/17 04:40 Last Admin: 08/20/17 04:44 Dose: 4 mg Pantoprazole Sodium (Protonix Iv) 40 mg IV Q12H ECTOR Last Admin: 08/20/17 06:01 Dose: 40 mg Tramadol HCl (Ultram) 50 mg PO ONETIME ONE Stop: 08/20/17 03:31 Last Admin: 08/20/17 03:34 Dose: 50 mg - Exam Quality Assessment: Denies: Supplemental Oxygen General: Reports: Alert, Oriented, Cooperative, No Acute Distress Neck: Reports: Supple Lungs: Reports: Normal Respiratory Effort GI/Abdominal Exam: Soft, No Distention Extremities: No Pedal Edema Psy/Mental Status: Reports: Alert, Normal Affect
== END 2017-08-21 13:58 | disposition home or self-care (01) | DRG 392 ==
LOC: JP.ED 23:58 → JP.MS 08-20 04:57
PROVIDERS: ADMIT Internal Medicine; ATTEND Internal Medicine
DX: K57.92 Diverticulitis of intestine, part unspecified, without perforation or abscess without bleeding (principal); K59.00 Constipation, unspecified; K56.600 Partial intestinal obstruction, unspecified as to cause; K58.9 Irritable bowel syndrome, unspecified; K57.90 Diverticulosis of intestine, part unspecified, without perforation or abscess without bleeding; I25.10 Atherosclerotic heart disease of native coronary artery without angina pectoris; J44.9 Chronic obstructive pulmonary disease, unspecified; M19.90 Unspecified osteoarthritis, unspecified site; M85.80 Other specified disorders of bone density and structure, unspecified site; I10 Essential (primary) hypertension; Z95.5 Presence of coronary angioplasty implant and graft; Z88.8 Allergy status to other drugs, medicaments and biological substances; Z79.899 Other long term (current) drug therapy; Z79.82 Long term (current) use of aspirin; Z85.828 Personal history of other malignant neoplasm of skin
CPT/HCPCS: 36415; 74019 ×2; 74177; 80053; 81001; 82150; 83690; 83735; 85027; 85610; 96361; 96374; 96375; 99284; A9270 ×4; J2270; J2405; J7030; J7120; Q9967; C9113; J1170; J2060; J2543; J2930; J3010; J3480

== ENCOUNTER 2019-11-01 22:21 | Emergency (ER) | payer MEDICARE ==
[2019-11-01 23:06] VITALS: BP 170/80; PULSE 62
[2019-11-01] MEDS ORDERED: Sodium Chloride 0.9% 10 ML Syringe FLUSH PRN (23:23)
[2019-11-01] MEDS ORDERED: Ketorolac 30 MG/ML SDV IVPUSH ONE (23:23)
[2019-11-01] MEDS ORDERED: Ondansetron 4 MG/2 ML SDV IVPUSH ONE (23:24)
--- NOTE | 2019-11-01 23:30 | EDM.PDOC ---
ED HPI GENERAL MEDICAL PROBLEM - General Chief Complaint: Abdominal Pain Stated Complaint: ABD PAIN Time Seen by Provider: 11/01/19 23:15 Source of Information: Reports: Patient, Old Records, RN History Limitations: Reports: No Limitations - History of Present Illness INITIAL COMMENTS - FREE TEXT/NARRATIVE: 84 yo female presents with RUQ abdominal pain that began about 0900h today. Now has associated nausea. BM's were normal today. Has a pHx of bowel obstructions, appendectomy and cholecystectomy. No fever. No black or bloody stools. She has not noticed any pain with pressing over her abdomen. Appetite is decreased. Took acetaminophen with minimal relief. Is intolerant of narcotics. Onset: Today, Gradual Onset Date: 11/01/19 Onset Time: 09:00 Duration: Hour(s): Location: Reports: Abdomen Quality: Reports: Ache Severity: Moderate Improves with: Reports: None Worsens with: Reports: Other (? time) Context: Reports: Other (See HPI) Associated Symptoms: Reports: Loss of Appetite, Nausea/Vomiting (no vomiting). 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 Right Abdominal Pain Score (Numeric/FACES): 9 - Related Data Allergies Allergy/AdvReac Type Severity Reaction Status Date / Time levofloxacin Allergy Hives Verified 11/01/19 23:00 Opioids - Morphine Analogues AdvReac Disorientat Verified 11/01/19 23:00 ion Home Meds: Home Meds Acetaminophen [Tylenol] 650 mg PO Q4HR PRN 11/11/12 [History] Albuterol Sulfate [Proair Hfa] 2 puff INH Q4H PRN 11/11/12 [History] Aspirin [Halfprin] 81 mg PO BEDTIME 11/11/12 [History] Calcium Carbonate [Calcium] 600 mg PO DAILY 11/11/12 [History] Fluticasone Propionate [Flonase] 2 spray SANYA BID 07/13/14 [History] Clopidogrel Bisulfate [Clopidogrel] 75 mg PO DAILY 07/20/17 [History] Gabapentin [Neurontin] 300 mg PO BID 07/20/17 [History] Isosorbide Mononitrate [Isosorbide Mononitrate ER] 30 mg PO DAILY 07/20/17 [History] Metoprolol Succinate [Toprol XL 50mg] 25 mg PO DAILY 07/20/17 [History] atorvaSTATin [Lipitor] 20 mg PO BEDTIME 07/20/17 [History] Pantoprazole Sodium 40 mg PO DAILY 09/24/17 [History] Past Medical History HEENT History: Reports: Allergic Rhinitis, Impaired Vision Cardiovascular History: Reports: High Cholesterol, Hypertension, Stents Respiratory History: Reports: COPD, SOB, TB 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 Gastrointestinal History: Reports: Bowel Obstruction, Diverticulosis, GERD, P ancreatitis Genitourinary History: Reports: None [employer] S[employer] 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: 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: Musculoskeletal History: Reports: Back Pain, Chronic, Osteoarthritis, Other (See Below) Other Musculoskeletal History: osteopenia Neurological History: Reports: None Psychiatric History: Reports: None Endocrine/Metabolic History: Reports: None Hematologic History: Reports: None Immunologic History: Reports: None Oncologic (Cancer) History: Reports: Squamous Cell Carcinoma Dermatologic History: Reports: Other (See Below) Other Dermatologic History: squamous ca thumb - Infectious Disease History Infectious Disease History: Reports: Chicken Pox, Measles, Mumps, Pertussis (W hooping Cough), Rheumatic Fever, Rubella, Scarlet Fever, Shingles, TB Other Infectious Disease History: valley fever - Past Surgical History Head Surgeries/Procedures: Reports: None HEENT Surgical History: Reports: Adenoidectomy, Tonsillectomy Other HEENT Surgeries/Procedures: 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 Cardiovascular Surgical History: Reports: Coronary Artery Stent Respiratory Surgical History: Reports: Lung Biopsies GI Surgical History: Reports: Appendectomy, Cholecystectomy, Colonoscopy Social & Family History - Tobacco Use Smoking Status *Q: Never Smoker - Caffeine Use Caffeine Use: Reports: None ED ROS GENERAL - Review of Systems Review Of Systems: See Below Constitutional: Reports: No Symptoms HEENT: Reports: No Symptoms Respiratory: Reports: No Symptoms Cardiovascular: Reports: No Symptoms Endocrine: Reports: No Symptoms GI/Abdominal: Reports: Abdominal Pain, Decreased Appetite, Nausea. Denies: Black Stool, Bloody Stool, Constipation, Diarrhea, Distension, Hematemesis, Hematochezia, Melena, Mucous in Stool, Vomiting : Reports: No Symptoms Musculoskeletal: Reports: No Symptoms Skin: Reports: No Symptoms Neurological: Reports: No Symptoms ED EXAM, GI/ABD - Physical Exam Exam: See Below Exam Limited By: No Limitations General Appearance: Alert, WD/WN, No Apparent Distress, Obese Eyes: Bilateral: Normal Appearance Ears: Normal External Exam, Normal Canal, Hearing Grossly Normal Throat/Mouth: Normal Inspection, Normal Lips, Normal Oropharynx, Normal Voice, No Airway Compromise Head: Atraumatic, Normocephalic Neck: Normal Inspection Respiratory/Chest: No Respiratory Distress, Lungs Clear, Normal Breath Sounds, No Accessory Muscle Use Cardiovascular: Regular Rate, Rhythm, No Edema GI/Abdominal Exam: Normal Bowel Sounds, Soft, No Distention, Tender (RUQ). No: Non-Tender, Distended, Guarding, Rigid, Rebound Back Exam: Normal Inspection. No: CVA Tenderness (R), CVA Tenderness (L) Extremities: Normal Inspection, Normal Range of Motion, Non-Tender, No Pedal Edema Neurological: Alert, Oriented, CN II-XII Intact, Normal Cognition, No Motor/Sensory Deficits Psychiatric: Normal Affect, Normal Mood Skin Exam: Warm, Dry, Intact, Normal Color, No Rash Course - Vital Signs Last Recorded V/S: Last Vital Signs Temp 36.4 C 11/01/19 23:06 Pulse 62 11/01/19 23:06 Resp 20 11/01/19 23:06 BP 170/80 H 11/01/19 23:06 Pulse Ox 97 11/01/19 23:06 - Orders/Labs/Meds Orders: Active Orders 24 hr Category Date Time Status Abdomen 1V Upright [CR] Stat Exams 11/01/19 23:19 Taken Sodium Chloride 0.9% [Saline Flush] Med 11/01/19 23:23 Active 10 ml FLUSH ASDIRECTED PRN Saline Lock Insert [OM.PC] Routine Oth 11/01/19 23:23 Ordered Medication Orders Sodium Chloride (Saline Flush) 10 ml FLUSH ASDIRECTED PRN PRN Reason: Keep Vein Open Last Admin: 11/01/19 23:44 Dose: 10 ml Documented by: WILLIE Labs: Laboratory Tests 11/01/19 11/01/19 11/01/19 Range/Units 23:49 23:50 23:50 WBC 6.7 (4.5-11.0) K/uL RBC 4.27 (3.30-5.50) M/uL Hgb 13.3 (12.0-15.0) g/dL Hct 41.0 (36.0-48.0) % MCV 96 (80-98) fL MCH 31 (27-31) pg MCHC 32 (32-36) % Plt Count 206 (150-400) K/uL Sodium 143 (140-148) mmol/L Potassium 4.0 (3.6-5.2) mmol/L Chloride 106 (100-108) mmol/L Carbon Dioxide 28 (21-32) mmol/L Anion Gap 9.1 (5.0-14.0) mmol/L BUN 13 (7-18) mg/dL Creatinine 1.0 (0.6-1.0) mg/dL Est Cr Clr Drug Dosing 39.90 mL/min Estimated GFR (MDRD) 53 L (>60) Glucose 122 H (74-106) mg/dL Calcium 8.9 (8.5-10.1) mg/dL Total Bilirubin 0.6 (0.2-1.0) mg/dL AST 21 (15-37) U/L ALT 28 (12-78) U/L Alkaline Phosphatase 83 (46-116) U/L Total Protein 7.0 (6.4-8.2) g/dL Albumin 3.5 (3.4-5.0) g/dL Globulin 3.5 (2.3-3.5) g/dL Albumin/Globulin Ratio 1.0 L (1.2-2.2) Lipase 145 (73-393) U/L Urine Color Yellow (YELLOW) Urine Appearance Clear (CLEAR) Urine pH 7.0 (5.0-8.0) Ur Specific [place] 1.015 (1.008-1.030) Urine Protein Negative (NEGATIVE) mg/dL Urine Glucose (UA) Normal (NEGATIVE) mg/dL Urine Ketones Negative (NEGATIVE) mg/dL Urine Occult Blood Trace (NEGATIVE) Urine Nitrite Negative (NEGATIVE) Urine Bilirubin Negative (NEGATIVE) Urine Urobilinogen 0.2 (0.2-1.0) EU/dL Ur Leukocyte Esterase Trace H (NEGATIVE) Urine RBC 0-5 (0-5) Urine WBC 0-5 (0-5) Ur Epithelial Cells Few Amorphous Sediment Not seen Urine Bacteria Few Urine Mucus Not seen Meds: Medications Generic Name Dose Route Start Last Admin Trade Name Freq PRN Reason Stop Dose Admin Sodium Chloride 10 ml 11/01/19 23:23 11/01/19 23:44 Saline Flush FLUSH 10 ml ASDIRECTED PRN Administration Keep Vein Open Discontinued Medications Generic Name Dose Route Start Last Admin Trade Name Ebony PRN Reason Stop Dose Admin Ketorolac Tromethamine 30 mg 11/01/19 23:23 11/01/19 23:44 Toradol IVPUSH 11/01/19 23:24 30 mg ONETIME ONE Administration Metoclopramide HCl 10 mg 11/02/19 00:17 11/02/19 00:36 Reglan IVPUSH 11/02/19 00:18 10 mg ONETIME ONE Administration Ondansetron HCl 4 mg 11/01/19 23:24 11/01/19 23:44 Zofran IVPUSH 11/01/19 23:25 4 mg ONETIME ONE Administration Polyethylene Glycol 34 gm 11/02/19 00:18 11/02/19 00:36 Miralax PO 11/02/19 00:19 34 gm ONETIME ONE Administration - Radiology Interpretation Free Text/Narrative:: Upright abd X-rays-R sided stool and air-fluid levels. - Re-Assessments/Exams Free Text/Narrative Re-Assessment/Exam: 11/02/19 01:45 Sx's resolved after Reglan IV. Departure - Departure Time of Disposition: 01:45 Disposition: Home, Self-Care 01 Condition: Good Clinical Impression: Fecal retention Qualifiers: Constipation type: unspecified constipation type Qualified Code(s): K59.00 - Constipation, unspecified - Discharge Information *PRESCRIPTION DRUG MONITORING PROGRAM REVIEWED*: Not Applicable *COPY OF PRESCRIPTION DRUG MONITORING REPORT IN PATIENT KATIE: Not Applicable Referrals: Hermann Holbrook MD [Primary Care Provider] - Forms: ED Department Discharge Additional Instructions: Sips of clear liquids only until you are fully recovered. Get as much walking in as you can to help move things through your bowels. Continue Miralax as needed. Return if symptoms persist or recur. Sepsis Event Note (ED) - Evaluation Sepsis Screening Result: No Definite Risk - Focused Exam Vital Signs: Vital Signs Temp Pulse Resp BP Pulse Ox 11/01/19 23:06 36.4 C 62 20 170/80 H 97 11/01/19 23:05 36.4 C 62 20 170/80 H 97 - My Orders Last 24 Hours: My Active Orders 11/01/19 23:19 Abdomen 1V Upright [CR] Stat 11/01/19 23:23 Sodium Chloride 0.9% [Saline Flush] 10 ml FLUSH ASDIRECTED PRN Saline Lock Insert [OM.PC] Routine - Assessment/Plan Last 24 Hours: My Active Orders 11/01/19 23:19 Abdomen 1V Upright [CR] Stat 11/01/19 23:23 Sodium Chloride 0.9% [Saline Flush] 10 ml FLUSH ASDIRECTED PRN Saline Lock Insert [OM.PC] Routine
[2019-11-02] MEDS ORDERED: Metoclopramide 10 MG/2 ML SDV IVPUSH ONE (00:17)
[2019-11-02] MEDS ORDERED: Polyethylene Glycol 3350 Powder 17 GM Packet PO ONE (00:18)
--- NOTE | 2019-11-02 09:16 | CR ---
Abdomen 1V Upright CLINICAL HISTORY: Abdominal pain with nausea FINDINGS: No free air is identified. There are a few small air-fluid levels in the right abdomen. Intestinal gas pattern is nonspecific. Patient has had previous right upper quadrant surgery. IMPRESSION: Nonspecific intestinal gas pattern
== END 2019-11-02 01:59 | disposition home or self-care (01) ==
LOC: JP.ED 22:21
DX: K59.00 Constipation, unspecified (principal); I10 Essential (primary) hypertension; J44.9 Chronic obstructive pulmonary disease, unspecified; M19.90 Unspecified osteoarthritis, unspecified site; E78.00 Pure hypercholesterolemia, unspecified; Z88.1 Allergy status to other antibiotic agents; Z88.5 Allergy status to narcotic agent; Z79.82 Long term (current) use of aspirin; Z79.02 Long term (current) use of antithrombotics/antiplatelets; Z79.899 Other long term (current) drug therapy
CPT/HCPCS: 36415; 74018; 80053; 81001; 83690; 85027; 96374; 96375; 99284; A9270; J1885; J2405; J2765